=== PATIENT | female | born 1950 | race Two or more races ===

== ENCOUNTER 2024-01-29 04:11 | Inpatient (IN) | payer OTHER, MEDICARE, SELFPAY ==
[2024-01-29] VITALS (36 sets, daily range): BP systolic 125–221; BP diastolic 52–145; PULSE 75–110; RESP 16–95; TEMP 36.1–37.5; O2SAT 94–100; BMI 31.2; BMI 36.6
--- NOTE | 2024-01-29 04:26 | PD.EDRME ---
Rapid Medical Screening Exam [facility] Arrival date/time: 01/29/24 04:11 Chief Complaint: Shortness of Breath/Dyspnea Time Seen by Provider: 01/29/24 04:37 Vital signs: Vital Signs Pulse Rate 110 H 01/29/24 04:18 Respiratory Rate 35 H 01/29/24 04:18 RME Narrative: 73yo female NATAN presents to the ED for a chief complaint of shortness of breath. Unknown duration. Endorses associated nausea, headache, and shakiness. Patient is due for dialysis today at 0800, and was dialyzed on Sunday. She does not urinate.
--- NOTE | 2024-01-29 04:29 | XR_ITS ---
Examination: AP chest single view TECHNIQUE: AP portable upright chest single view Exam date and time: January 29, 2024 0441 hours Comparison January 05, 2023 INDICATIONS: Shortness of breath today. FINDINGS: Mild CHF Mild enlargement cardiac contour, prominent vascular congestion and perihilar basilar edema with smaller moderate bilateral pleural effusions IMPRESSION: Mild CHF
[2024-01-29] MEDS: METOPROLOL TARTRATE INJ 1 MG/ML AMP 5 ML 5 MG IVP (04:50)
[2024-01-29 05:17] LABS: Basophils # (Auto) 0.1 Thou/mm3 (0.0-0.2); Basophils % (Auto) 1 % (0-2.5); Eosinophils # (Auto) 0.3 Thou/mm3 (0.0-0.5); Eosinophils % (Auto) 2 % (0-10); Hematocrit 33.4 % (36.0-46.0); Hemoglobin 10.9 g/dL (12.0-16.0); Immature Granulocytes % (Auto) 1 % (0-0); Immature Granulocytes Auto 0.06 Thou/mm3 (0.00-0.00); Lymphocytes # (Auto) 1.9 Thou/mm3 (1.0-4.8); Lymphocytes % (Auto) 14 % (10-50); Mean Corpuscular HGB Conc 32.6 g/dl (31.0-37.0); Mean Corpuscular Hemoglobin 31.2 pg (25.0-35.0); Mean Corpuscular Volume 96 fL (80-100); Monocytes # (Auto) 0.7 Thou/mm3 (0.0-0.8); Monocytes % (Auto) 5 % (0-12); Neutrophils % (Auto) 78 % (37-80); Nucleated Red Blood Cell % 0 /100 WBC (0); Platelet Count 236 Thou/mm3 (140-440); RDW Standard Deviation 47.5 fL (36.4-46.3); Red Blood Count 3.49 Miln/mm3 (4.00-5.20); White Blood Count 12.9 Thou/mm3 (3.6-11.0)
[2024-01-29 05:55] LABS: Alanine Aminotransferase 32 U/L (10-49); Albumin, Serum 4.4 gm/dL (3.4-4.8); Albumin/Globulin Ratio 1.3 (1.2-2.2); Alkaline Phosphatase 253 U/L (46-116); Anion Gap 13 (7-16); Aspartate Amino Transferase 48 U/L (0-34); BUN/Creatinine Ratio 11 Ratio (12-20); Bilirubin,Total 0.2 mg/dL (0.3-1.2); Blood Urea Nitrogen 71 mg/dL (9-23); Calcium 9.1 mg/dL (8.3-10.6); Calcium (Corrected) 9.1 mg/dL (8.5-10.1); Carbon Dioxide 23.3 mMol/L (20.0-31.0); Chloride 98 mMol/L (98-107); Creatinine (Component) 6.7 mg/dL (0.6-1.3); Estimated Creatinine Clearance 6.6 mL/min (>60); Globulin 3.4 gm/dL (2.3-3.5); Glucose 282 mg/dL (74-106); Osmolality,Calculated 299 (275-295); Potassium 4.6 mMol/L (3.4-5.1); Sodium 134 mMol/L (136-145); Total Protein 7.8 gm/dL (5.7-8.2); Troponin I 0.037 ng/mL (0.0-0.045); eGFR 6 See Note
--- NOTE | 2024-01-29 06:52 | PC.NURSE ---
DR. BUENO MADE AWARE THAT THE PT BLOOD PRESSURE WENT BACK UP TO 210/92, AND REPORTED THAT HE WILL ASSESS PT FIRST.
--- NOTE | 2024-01-29 06:57 | PD.EDSOB ---
ED SOB =RME/HPI General Chief Complaint: Shortness of Breath/Dyspnea Stated Complaint: SOB Time Seen by Provider: 01/29/24 04:37 Arrival date/time: 01/29/24 04:11 RME / HPI RME / HPI Narrative: 73yo female NATAN presents to the ED for a chief complaint of shortness of breath. Unknown duration. Endorses associated nausea, headache, and shakiness. Patient is due for dialysis today at 0800, and was dialyzed on Sunday. She does not urinate. DR. BUENO MAIN ED EVALUATION 73 year old female with history of hypertension, diabetes, CKD, ESRD on HD T//Sun followed by Dr. Glez, hypothyroidism, and uses oxygen as needed presents to the ED BIBA from home for shortness of breath today. Daughter reports patient had complained of feeling unwell last night. At approximately 03:00 am the patient had lost consciousness and stopped breathing . State they performed CPR for approximately 15 seconds before the patient began moaning and responding. Daughter denies any recent fevers, falls, or trauma. Related Data Home Medications ?Medication ?Instructions ?Recorded ?Confirmed atorvastatin 40 mg tablet 20 mg PO QDAY 08/20/20 05/16/22 furosemide 20 mg tablet 20 mg PO BID 08/20/20 05/14/23 hydralazine 50 mg tablet 50 mg PO BID 08/20/20 05/14/23 insulin glargine 100 unit/mL 10 unit subcut BID 08/20/20 05/14/23 subcutaneous solution (Lantus U-100 Insulin) metoprolol tartrate 50 mg tablet 50 mg PO BID 08/20/20 05/14/23 semaglutide 1 mg/dose (2 mg/1.5 0.5 mg subcut QWEEK 08/20/20 05/14/23 mL) subcutaneous pen injector (Ozempic) vitamin B complex-vitamin C-folic 1 tab PO QDAY 08/20/20 05/14/23 acid 800 mcg chewable tablet (Dialyvite 800) apixaban 5 mg tablet (Eliquis) 5 mg PO BID 05/16/22 05/16/22 clonidine HCl 0.2 mg tablet 0.2 mg PO TID 05/16/22 05/14/23 escitalopram oxalate 20 mg tablet 20 mg PO QDAY 05/16/22 05/14/23 glimepiride 2 mg tablet 2 mg PO BID 05/16/22 05/14/23 levothyroxine 100 mcg tablet 100 mcg PO DAILY 05/16/22 05/14/23 lidocaine 4 % topical cream 1 applic topical BID 05/16/22 05/16/22 valsartan 320 1 tab PO QDAY 05/16/22 05/16/22 mg-hydrochlorothiazide 25 mg tablet loperamide 2 mg capsule (Imodium 2 mg PO Q6H PRN 05/14/23 05/14/23 A-D) phenazopyridine 100 mg tablet 100 mg PO TID 05/14/23 05/14/23 (Pyridium) Allergies Allergy/AdvReac Type Severity Reaction Status Date / Time No Known Allergies Allergy Verified 05/14/23 10:14 Review of Systems Review of Systems Narrative Review of Systems: GEN: No fever, no chills, no weight loss EYES: No discharge, no visual changes, no pain HEENT: No ear pain, no congestion, no sore throat PULM: +shortness of breath, no cough, no congestion CV: +LOC per family with CPR performed for 15 seconds. No chest pain, no palpitations GI: No nausea, no vomiting, no diarrhea, no pain, no constipation : No frequency, no urgency and no dysuria MUSC/SKEL No joint pain, no back pain SKIN: No rash NEURO: No weakness, no headache Past Medical History Past Medical History NEUROLOGIC: Positive Peripheral Neuropathy CARDIAC: Positive Cardiac Disorders, Cardiac Arrhythmia, Heart Murmur, Atherosclerotic Heart Disease, Hypercholesterolemia, Edema, Deep Vein Thrombosis and Hypertension RESPIRATORY: Positive Bronchitis GASTROINTESTINAL: Positive Gastrointestinal Disorders, Gastroesophageal Reflux Disease and Obesity GENITOURINARY: Positive Genitourinary Disorders, Renal Disease and Dialysis (Tues, Thurs, Sat) REPRODUCTIVE: Positive Breast Cancer and Previous Pregnancies MUSCULOSKELETAL: Positive Musculoskeletal Disorders, Arthritis, Osteoporosis and Fractures ENDOCRINE: Positive Endocrine Disorders, Diabetes Mellitus Type 2, Hyperthyroidism and Hypothyroidism HEMATOLOGIC: Positive Anemia PSYCHO/SOCIAL: Positive Depression and Anxiety OTHER HISTORY: Positive Blood Transfusions, Cancer and Breast Cancer Family History FAMILY HISTORY: Negative Family Cardiac Disorders Surgical History SURGICAL: Positive Abdominal Surgery, Lumpectomy and Section Social History SMOKING STATUS: Never smoker SUBSTANCE USE: does not use ED Exam Narrative Physical exam: GENERAL APPEARANCE: Well hydrated, well nourished, in no acute distress. VITALS: All vitals were reviewed and the pulse ox is 94% on room air which is normal according to my interpretation. HEENT: Normocephalic, atramatic, EOMI, EACs are patent. There is no bulge or retraction. Throat without erythema or exudate. Moist oromucosa. No jaundice NECK: Supple, no JVD or bruits. CARDIOVASCULAR: Heart regular without S3-S4 or murmur. No rubs or gallops. LUNGS/CHEST: Rhonchi at the bases. No rales or wheezing. ABDOMEN: Soft, nontender, with normal bowel sounds. No pulsatile masses. No rebound, rigidity, or guarding. No incarcerated hernia. Normal inspection and palpation. EXTREMITIES: Normal inspection and palpation. No edema, clubbing, or cyanosis. Intact CSM SKIN: Warm and dry without rashes. Normal inspection. MUSCULOSKELETAL: Normal inspection. No gross deformity, full ROM all extremities NEURO: Alert and oriented x3. Cranial nerves II through XII grossly intact. There are no other motor or sensory deficits noted. PSYCHIATRIC: Normal mood and affect. No psychosis. Course Course Course Narrative: chest xray ordered to help determine etiology of shortness of breath. Quality Measures none Orders Category Date Time Status EKG (ED ONLY) *Do not use* NOW Care 01/29/24 04:27 Completed Hemodialysis Urgent Care 01/29/24 07:29 Active Insert IV NOW Care 01/29/24 04:28 Active Consult to Nephrology Stat Cons 01/29/24 07:28 Ordered EKG (ED Only) Stat Exams 01/29/24 04:27 Ordered XR chest 1V portable Stat Exams 01/29/24 04:29 Completed BNP [B-Type Natriuretic Peptide] Stat Lab 01/29/24 04:36 Completed CBC Stat Lab 01/29/24 04:36 Completed Comprehensive Metabolic Panel Stat Lab 01/29/24 04:36 Completed Troponin I Stat Lab 01/29/24 04:36 Completed Acetaminophen Tab [Tylenol Tab] Med 01/29/24 09:28 Discontinued 650 mg PO X1 ONE Epoetin Manuel-Epbx Inj [Retacrit Inj] Med 01/29/24 07:29 Discontinued 10,000 unit SC X1 ONE Metoprolol Tartrate Inj [Lopressor Inj] Med 01/29/24 04:37 Discontinued 5 mg IVP X1 ONE hydrALAZINE INJ [Apresoline Inj] Med 01/29/24 07:07 Discontinued 10 mg IV X1 ONE Vital Signs Vital signs: Vital Signs Pulse Rate 110 H 01/29/24 04:18 Respiratory Rate 35 H 01/29/24 04:18 Shortness of Breath / Dyspnea MDM Narrative MDM Narrative:: I, Priscilla Sly, am scribing for and in the presence of Dr. Bueno. WBC count is 13,000. BUN 71 creatinine is 6.7 which is consistent with end-stage renal disease. Blood sugar is 282. She is diabetic. Troponin is negative. BNP is elevated. Chest x-ray reviewed by and interpreted by me as follow: Mild congestive heart failure and pulmonary edema. Blunting right costophrenic angle may be consistent with mild pleural effusion. Heart is normal. Mediastinum is normal. Normal bones. Twelve-lead EKG at 4:38 AM and interpreted by me: Sinus rhythm. Heart rate 84. Normal axis. Right bundle branch block. No ST elevation or depression. No PVC. No STEMI. The patient is stable on oxygen. 10 AM I spoke to and discussed with Dr. Montoya, primary doctor as well as inside solar sales consultant. She agreed to admit the patient for further evaluation and treatment and dialysis Critical care time is approximately 35 minutes excluding any procedure. The high probability of sudden, clinically significant deterioration in the patient?s condition required the highest level of my preparedness to intervene urgently. The services I provided to this patient were to treat and/or prevent clinically significant deterioration. Services included the following: chart data review, reviewing nursing notes and/or old charts, documentation time, art sales consultant collaboration regarding findings and treatment options, medication orders and management, direct patient care, vital sign assessments and ordering, interpreting and reviewing diagnostic studies and lab tests. Aggregate critical care time includes only time during which I was engaged in work directly related to the patient?s care, as described above, whether at bedside or elsewhere in the Emergency Department. It did not include time spent performing other reported procedures or the services of residents, students, nurses or physician assistants. Patient data External records reviewed:: [facility] previous records (I reviewed ED visit on 01/05/2023) and EMS form Clinical information provided by:: patient and family (Daughter- provides history ) Social determinants that could affect healthcare access:: none Patient has the following chronic illnesses:: hypertension, diabetes, CKD, ESRD on HD T//Sun followed by Dr. Glez, hypothyroidism, and uses oxygen as needed How is presenting disease/condition affected by chronic disease/condition?: exacerbated by Evaluation data The following diagnostics were reviewed and interpreted by me:: lab results, radiology exam(s) and EKG tracing(s) Lab and/or radiology exams considered but not ordered:: None Interpretation Summary: Ordering Physician: Mariza Valerio MD Date of Service: 01/29/24 Procedure(s): XR chest 1V portable Accession Number(s): [id number] cc: Jed Multani MD; Mariza Valerio MD; Roderick Glez MD~ Examination: AP chest single view TECHNIQUE: AP portable upright chest single view Exam date and time: January 29, 2024 0441 hours Comparison January 05, 2023 INDICATIONS: Shortness of breath today. FINDINGS: Mild CHF Mild enlargement cardiac contour, prominent vascular congestion and perihilar basilar edema with smaller moderate bilateral pleural effusions IMPRESSION: Mild CHF Dictated By: Jed Multani MD Signed By: <Electronically signed by Jed Multani MD in OV> 01/29/24 0940 Medications / Prescriptions Medications or Prescriptions considered but not ordered:: None Medication administrations:: Medication Administration History Acetaminophen (Acetaminophen 325 Mg Tablet) 650 mg PO Q6H PRN PRN Reason: PAIN SCALE 1-3 (mild Stop: 02/28/24 09:56 Bisacodyl (Bisacodyl 5 Mg Tabec) 10 mg PO QDAY PRN; Protocol PRN Reason: CONSTIPATION Stop: 02/28/24 09:56 Dextrose (Dextrose 50%-Water Inj 50 Ml Syringe) 25 ml IV Q15MIN PRN PRN Reason: BG 50-70 responsive npo pt Stop: 02/28/24 10:01 Dextrose (Dextrose 50%-Water Inj 50 Ml Syringe) 50 ml IV Q15MIN PRN PRN Reason: BG <50 OR BG <70 & pt unresponsive Stop: 02/28/24 10:01 Glucagon (Glucagon Inj 1 Mg Vial) 1 mg IM Q15MIN PRN PRN Reason: BG <70, and no IV access Heparin Sodium (Porcine) (Heparin Sod Inj 5000 Unit/Ml Vial) 5,000 unit SC Q8HR ELÍAS Stop: 02/12/24 13:59 Insulin Human Lispro (Insulin Lispro (Admelog) 1 Unit/0.01 Ml Unit) 0 unit SC ACHS [facility]; Protocol Stop: 02/28/24 11:29 Ondansetron HCl (Ondansetron Inj 2 Mg/Ml Inj 2 Ml) 4 mg IV Q6H PRN; Protocol PRN Reason: NAUSEA OR VOMITING Stop: 02/28/24 09:56 Oxycodone/Acetaminophen (Oxycodone/Apap 5/325 Tablet) 1 tab PO Q6H PRN PRN Reason: PAIN SCALE 4-6 (Moderate Stop: 02/03/24 09:56 Sennosides (Senna Tablet) 1 tab PO QDAY PRN; Protocol PRN Reason: constipation Stop: 02/28/24 09:56 Discontinued Medications Acetaminophen (Acetaminophen 325 Mg Tablet) 650 mg PO X1 ONE Stop: 01/29/24 09:29 Last Admin: 01/29/24 09:59 Dose: 650 mg Documented By: GM Epoetin Manuel (Epoetin Manuel-Epbx Inj 10,000 Unit/Ml Vial (Esrd)) 10,000 unit SC X1 ONE Stop: 01/29/24 07:30 Last Admin: 01/29/24 10:13 Dose: 10,000 unit Documented By: GM Hydralazine HCl (Hydralazine Inj 20 Mg/Ml Vial) 10 mg IV X1 ONE Stop: 01/29/24 07:08 Last Admin: 01/29/24 07:15 Dose: 10 mg Documented By: GM Metoprolol Tartrate (Metoprolol Tartrate Inj 1 Mg/Ml Amp 5 Ml) 5 mg IVP X1 ONE Stop: 01/29/24 04:38 Last Admin: 01/29/24 04:50 Dose: 5 mg Documented By: DB See above Consultations Consultation(s) initiated? (list below): Yes Consultation #1 (Physician, Specialty, Details): I spoke with patients PCP/inside solar sales consultant Dr. Glez. Discussed patients PMHx, HPI, ED course, exam findings, labs, and radiology results. She accepts the patient for admission. Time: 09:55 Diagnosis Shortness of Breath Differential Diagnosis: acute exacerbation of chronic obstructive airways disease, congestive heart failure and community acquired pneumonia Most likely diagnosis given after review of the tests above:: Diabetes with ESRD Fluid overload Admission Indicated Admission indicated?: indicated Admission Request Was there a request for admission?: Yes Admission Attestation Admission request attestation: Discussed case with [] from Hospitalist service regarding admission. Discussed patients ED course, exam findings, labs, and radiology results. The Hospitalist [agrees,declines] to accept the patient for admission. Disposition Plan Disposition Plan: Admit Critical Care Time Critical Care Time Critical Care Time: Yes Total Critical Care Time (min.): 35 Attestation: The high probability of sudden, clinically significant deterioration in the patient's condition required the highest level of my preparedness to intervene urgently. The services I provided to this patient were to treat and/or prevent clinically significant deterioration. Services included the following: chart data review, reviewing nursing notes and/or old charts, documentation time, art sales consultant collaboration regarding findings and treatment options, medication orders and management, direct patient care, vital sign assessments and ordering, interpreting and reviewing diagnostic studies and lab tests. Aggregate critical care time includes only time during which I was engaged in work directly related to the patient's care, as described above, whether at bedside or elsewhere in the Emergency Department. It did not include time spent performing other reported procedures or the services of residents, students, nurses or physician assistants. Discharge Plan Plan Patient Disposition: Admit Acute Care w/in Hospital Disposition Comment: Stable for admit Problem List Clinical Impression: Diabetes mellitus with ESRD (end-stage renal disease), Fluid overload
[2024-01-29] MEDS: hydrALAZINE INJ 20 MG/ML VIAL 10 MG IV (07:15)
[2024-01-29 07:29] LABS: B-Type Natriuretic Peptide 1144 pg/mL (0-100)
[2024-01-29] MEDS: ACETAMINOPHEN 325 MG TABLET 650 MG PO ×2 (09:59→22:09)
--- NOTE | 2024-01-29 10:01 | ECHO_ITS ---
Transthoracic Echo Report Ht (in): 60 Wt (lb): 160 Exam Location: Portable Status: Emergency Philosophy Instructor: Daksha Roberts Indications: Procedure Performed: BP: 182 / 78 HR: 92 Rhythm: Sinus Technical Quality: Fair MEASUREMENTS (Male / Female) Normal Values 2D ECHO LV Diastolic Diameter PLAX 4.9 cm 4.2 - 5.9 / 3.9 - 5.3 cm LV Systolic Diameter PLAX 3.0 cm IVS Diastolic Thickness 1.3 cm 0.6 - 1.0 / 0.6 - 0.9 cm LVPW Diastolic Thickness 1.4 cm 0.6 - 1.0 / 0.6 - 0.9 cm LV Relative Wall Thickness 0.5 LVOT Diameter 1.7 cm LA Volume Index 38.0 cm?/m? 16 - 28 cm?/m? Ascending Aorta Diameter 3.1 cm M-MODE Aortic Root Diameter MM 3.1 cm LA Systolic Diameter MM 4.3 cm LA Ao Ratio MM 1.4 AV Cusp Separation MM 2.3 cm DOPPLER AV Peak Velocity 195.0 cm/s AV Peak Gradient 15.2 mmHg AV Mean Gradient 8.5 mmHg AV Velocity Time Integral 38.2 cm AI Peak Velocity 354.0 cm/s AI Peak Gradient 50.1 mmHg AI Pressure Half Time 366.0 ms LVOT Peak Velocity 120.0 cm/s LVOT Peak Gradient 5.8 mmHg LVOT Velocity Time Integral 25.8 cm LVOT Cardiac Index 3022.4 cm?/min?m? AV Area Cont Eq vti 1.5 cm? AV Area Cont Eq pk 1.4 cm? MV Peak Velocity 151.0 cm/s MV Peak Gradient 9.1 mmHg MV Mean Velocity 86.8 cm/s MV Mean Gradient 4.0 mmHg MV Area PHT 4.8 cm? MR Peak Velocity 330.5 cm/s MR Peak Gradient 43.7 mmHg Mitral E Point Velocity 133.0 cm/s Mitral A Point Velocity 103.0 cm/s Mitral E to A Ratio 1.3 LV E' Lateral Velocity 5.9 cm/s Mitral E to LV E' Lateral Ratio 22.7 LV E' Septal Velocity 6.5 cm/s Mitral E to LV E' Septal Ratio 20.4 TR Peak Velocity 246.5 cm/s TR Peak Gradient 24.3 mmHg FINDINGS Left Ventricle Normal left ventricular size, systolic function with no obvious regional wall motion abnormalities. Mild to moderate LVH. The ejection fraction is visually estimated at 65-70%. Right Ventricle The right ventricle is normal in size and systolic function. The estimated right ventricular systoli c pressure, 25mmHg. RAP 5. Left Atrium The left atrium is normal by two-dimensional, color flow and Doppler imaging with no structural abnormalities, no thrombus formation present. Right Atrium The right atrium is normal by two-dimensional imaging, color flow and Doppler imaging with no struct ural abnormalities, no thrombus formation present. Atrial Septum The interatrial septum appears normal with no evidence of a shunt. Aorta The aorta is normal by two-dimensional, color flow and Doppler interrogation. Mitral Valve The mitral valve is mildly MAC. There is mild mitral valve regurgitation. Aortic Valve The aortic valve is trileaflet. Mild sclerosis without stenosis. There is mild aortic valve regurgi tation. Tricuspid Valve The tricuspid valve is normal by two-dimensional, color flow and Doppler interrogation. There is tra ce tricuspid valve regurgitation. Pulmonic Valve There is mild pulmonic valve regurgitation. Vessels The pulmonary artery appears normal. The inferior vena cava pulmonary and hepatic veins appear esteban l. Pericardium The pericardium is normal by two-dimensional imaging. There is trival posterior pericardial effusi on. No evidence of cardiac tamponade. CONCLUSIONS Normal LV size and function. Mild to moderate LVH. Estimated EF 65-70% Normal RV size and function. Mild MAC. Mild MR, AI, PI. Trace TR. Mild AV sclerosis without stenosis. There is trival posterior pericardial effusion. No evidence of cardiac tamponade. Bucky Patel (Electronically Signed) Final Date: 30 January 2024 16:29
[2024-01-29] MEDS: EPOETIN ALFA-EPBX INJ 10,000 UNIT/ML VIAL (ESRD) 10000 UNIT SC (10:13)
[2024-01-29 10:40] LABS: Magnesium 2.5 mg/dL (1.6-2.6)
[2024-01-29] MEDS: INSULIN LISPRO (AdmeLOG) 1 UNIT/0.01 ML UNIT SC ×3 (11:26→20:24)
--- NOTE | 2024-01-29 11:52 | PC.NURSE ---
Selwyn, dialysis nurse her to take patient to dialysis.
--- NOTE | 2024-01-29 13:02 | PD.RESCONSUL ---
HPI Data of Consult Requesting Physician: Roderick Glez MD Admitting Provider: Roderick Glez MD Attending Provider: Roderick Glez MD Primary Care Provider: Roderick Glez MD Consult Narrative Reason for consult: shortness of breath, loss of consciousness History of present illness: The patient is a 73-year-old female with a previous medical history of end-stage renal disease on hemodialysis (), last dialysis session on sunday, hypothyroidism, hypertension, diabetes who came to the ED with shortness of breath and episode of loss of consciousness. Her daughter is at the bedside, reports that she started feeling unwell the day before with shortness of breath and cough, feeling of pressure in her chest. 01/29/2024 at approximately 3 AM she reported that she felt severely short of breath and briefly lost consciousness and stopped breathing. Daughter denies any trauma, patient was sitting on the sofa when lost conscioussness. ED course: In the ED patient was hypertensive 207/145, tachycardic 110, tachypneic and was saturating well on 2 L oxygen. Labs showed leukocytosis 12.9, hemoglobin 10.9, sodium 134, potassium 4.6, BUN 71, creatinine 6.7, EGFR 6, glucose 282, alkaline phosphatase 253, BNP 1144. Chest x-ray showed mild CHF. EKG showed sinus rhythm. During the examination patient was tachycardic and rhythm was irregular. Patient has received hydralazine 10 mg IV, metoprolol tartrate 5 mg IV. Patient was admitted due to hypertensive emergency due to fluid overload. She is set to receive her dialysis on schedule today. cc:: cc: Roderick Glez MD Review of Systems Review of Systems Narrative Review of Systems: General: Denies weight loss, fever and chills. HEENT: Denies changes in vision and hearing. Resp: Reports SOB, cough, no wheezing. CVS: Denies palpitations and CP. Reports feeling of pressure in the chest. GI: Denies nausea, vomiting and diarrhea. Reports mild abdominal pain. : Denies dysuria and urinary frequency. MSK: Denies myalgia and joint pain. Denies rash and pruritus. Neuro: Denies headache. Reports episode of loss of consciousness. Psych: Denies recent changes in mood. Denies anxiety and depression. Exam Vital Signs Temp Pulse Resp BP Pulse Ox O2 Del Method O2 Flow Rate 97.8 F 79 20 168/77 H 94 L Room Air 2 01/29/24 11:59 01/29/24 13:00 01/29/24 11:59 01/29/24 13:00 01/29/24 11:59 01/29/24 10:03 01/29/24 10:06 Narrative Exam Physical Exam General: Awake and in no acute distress. Conversational and non-toxic appearing. HEENT: Normocephalic, atraumatic, mucous membranes moist. Heart: Irregular rate, no murmurs. Lungs: Duffuse rhinchi and crackles. Abdomen: Soft, nondistended, diffusely mildly tender, positive bowel sounds. ?No guarding or rebound tenderness. Neurologic: Alert and oriented x3, no gross neurological deficit, and patient able to move all 4 extremities. Extremities: No edema. Skin: No rash or ecchymoses. Results Labs 01/29/24 04:36 01/29/24 04:36 Labs: Short CBC 01/29/24 Range/Units 04:36 WBC 12.9 H (3.6-11.0) Thou/mm3 Hgb 10.9 L (12.0-16.0) g/dL Hct 33.4 L (36.0-46.0) % Plt Count 236 (140-440) Thou/mm3 BMP 01/29/24 04:36 Sodium 134 L Potassium 4.6 Chloride 98 Carbon Dioxide 23.3 BUN 71 H Creatinine 6.7 H* Glucose 282 H Calcium 9.1 Cardiac Enzymes 01/29/24 Range/Units 04:36 Troponin I 0.037 (0.0-0.045) ng/mL Liver Function 01/29/24 Range/Units 04:36 Total Bilirubin 0.2 L (0.3-1.2) mg/dL AST 48 H (0-34) U/L ALT 32 (10-49) U/L Alkaline Phosphatase 253 H (46-116) U/L Albumin 4.4 (3.4-4.8) gm/dL Quality Measures Quality Measures none Advance care planning discussed with:: patient and child Medications Home Medications and Allergies Home Medications ?Medication ?Instructions ?Recorded ?Confirmed ?Type atorvastatin 40 mg tablet 20 mg PO QDAY 08/20/20 05/16/22 History furosemide 20 mg tablet 20 mg PO BID 08/20/20 05/14/23 History hydralazine 50 mg tablet 50 mg PO BID 08/20/20 05/14/23 History insulin glargine 100 unit/mL 10 unit subcut BID 08/20/20 05/14/23 History subcutaneous solution (Lantus U-100 Insulin) metoprolol tartrate 50 mg tablet 50 mg PO BID 08/20/20 05/14/23 History semaglutide 1 mg/dose (2 mg/1.5 0.5 mg subcut QWEEK 08/20/20 05/14/23 History mL) subcutaneous pen injector (Ozempic) vitamin B complex-vitamin C-folic 1 tab PO QDAY 08/20/20 05/14/23 History acid 800 mcg chewable tablet (Dialyvite 800) apixaban 5 mg tablet (Eliquis) 5 mg PO BID 05/16/22 05/16/22 History clonidine HCl 0.2 mg tablet 0.2 mg PO TID 05/16/22 05/14/23 History escitalopram oxalate 20 mg tablet 20 mg PO QDAY 05/16/22 05/14/23 History glimepiride 2 mg tablet 2 mg PO BID 05/16/22 05/14/23 History levothyroxine 100 mcg tablet 100 mcg PO DAILY 05/16/22 05/14/23 History lidocaine 4 % topical cream 1 applic topical BID 05/16/22 05/16/22 History valsartan 320 1 tab PO QDAY 05/16/22 05/16/22 History mg-hydrochlorothiazide 25 mg tablet loperamide 2 mg capsule (Imodium 2 mg PO Q6H PRN 05/14/23 05/14/23 History A-D) phenazopyridine 100 mg tablet 100 mg PO TID 05/14/23 05/14/23 History (Pyridium) Allergies Allergy/AdvReac Type Severity Reaction Status Date / Time No Known Allergies Allergy Verified 05/14/23 10:14 Visit Medications Acetaminophen (Acetaminophen 325 Mg Tablet) 650 mg PO Q6H PRN PRN Reason: PAIN SCALE 1-3 (mild Stop: 02/28/24 09:56 Bisacodyl (Bisacodyl 5 Mg Tabec) 10 mg PO QDAY PRN; Protocol PRN Reason: CONSTIPATION Stop: 02/28/24 09:56 Dextrose (Dextrose 50%-Water Inj 50 Ml Syringe) 25 ml IV Q15MIN PRN PRN Reason: BG 50-70 responsive npo pt Stop: 02/28/24 10:01 Dextrose (Dextrose 50%-Water Inj 50 Ml Syringe) 50 ml IV Q15MIN PRN PRN Reason: BG <50 OR BG <70 & pt unresponsive Stop: 02/28/24 10:01 Glucagon (Glucagon Inj 1 Mg Vial) 1 mg IM Q15MIN PRN PRN Reason: BG <70, and no IV access Heparin Sodium (Porcine) (Heparin Sod Inj 5000 Unit/Ml Vial) 5,000 unit SC Q8HR [facility] Stop: 02/12/24 13:59 Hydralazine HCl (Hydralazine Inj 20 Mg/Ml Vial) 10 mg IV Q6HR PRN PRN Reason: Hypertension Stop: 02/28/24 12:57 Insulin Human Lispro (Insulin Lispro (Admelog) 1 Unit/0.01 Ml Unit) 0 unit SC ACHS [facility]; Protocol Stop: 02/28/24 11:29 Last Admin: 01/29/24 11:26 Dose: 3 unit Metoprolol Succinate (Metoprolol Succinate Xl 25 Mg Tabcr) 50 mg PO QDAY [facility] Stop: 02/29/24 08:59 Ondansetron HCl (Ondansetron Inj 2 Mg/Ml Inj 2 Ml) 4 mg IV Q6H PRN; Protocol PRN Reason: NAUSEA OR VOMITING Stop: 02/28/24 09:56 Oxycodone/Acetaminophen (Oxycodone/Apap 5/325 Tablet) 1 tab PO Q6H PRN PRN Reason: PAIN SCALE 4-6 (Moderate Stop: 02/03/24 09:56 Sennosides (Senna Tablet) 1 tab PO QDAY PRN; Protocol PRN Reason: constipation Stop: 02/28/24 09:56 Valsartan (Valsartan 80 Mg Tablet) 160 mg PO BID [facility] Stop: 02/28/24 20:59 Discontinued Medications Acetaminophen (Acetaminophen 325 Mg Tablet) 650 mg PO X1 ONE Stop: 01/29/24 09:29 Last Admin: 01/29/24 09:59 Dose: 650 mg Epoetin Manuel (Epoetin Manuel-Epbx Inj 10,000 Unit/Ml Vial (Esrd)) 10,000 unit SC X1 ONE Stop: 01/29/24 07:30 Last Admin: 01/29/24 10:13 Dose: 10,000 unit Hydralazine HCl (Hydralazine Inj 20 Mg/Ml Vial) 10 mg IV X1 ONE Stop: 01/29/24 07:08 Last Admin: 01/29/24 07:15 Dose: 10 mg Hydralazine HCl (Hydralazine Hcl 25 Mg Tablet) 50 mg PO BID [facility] Stop: 02/28/24 20:59 Hydralazine HCl (Hydralazine Inj 20 Mg/Ml Vial) 10 mg IV PRN PRN PRN Reason: Hypertension Stop: 02/28/24 12:57 Metoprolol Tartrate (Metoprolol Tartrate Inj 1 Mg/Ml Amp 5 Ml) 5 mg IVP X1 ONE Stop: 01/29/24 04:38 Last Admin: 01/29/24 04:50 Dose: 5 mg Assessment & Plan Plan The patient is a 73-year-old female with a previous medical history of end-stage renal disease on hemodialysis (), last dialysis session on sunday, hypothyroidism, hypertension, diabetes who came to the ED with shortness of breath and episode of loss of consciousness. #Hypertensive emergency #Acute hypoxic respiratory failure, resolved #Syncopal episode Most likely due to fluid overload. Patient had a BP >200/100 at the admission. Chest Xray showed mild CHF. Plan: - Valsartan 180 mg BID - Metoprolol succinate 50 mg daily - Hydralazine 10 mg IV PRN if BP >180/100 - Hemodialysis with goal to remove 3L of fluid - Strict I's and O's - Obtain daily weight #Possible paroxysmal A-fib In the ED monitoring showed irregular heart rate. HR 78. Plan: - continue monitoring - repeat EKG #ESRD on HD () 01/29/24: Patient will have dialysis today, plan to remove 3 L of fluid. Plan: - continue with dialysis as scheduled #Hypothyroidism Plan: - Resumed home levothyroxin #Type 2 diabetes mellitus Plan: - sensitive ISS with Accu-checks Health maintenance: FEN: Renal diet carbohydrate consistent DVT prophylaxis: heparin sc GI prophylaxis: none Dispo: tele bed CODE STATUS: Full code Plan of care discussed with attending Dr. Glez. Fawn Herrera MD, PGY 1.
--- NOTE | 2024-01-29 15:27 | PC.NURSE ---
Dialysis completed for 3 hrs, tolerated well. Able to removed 3L of fluid net. Post tx VS stable. BP 183/85, HR 84, Temp 97.8. Respiration even and unlabored. Sating at 97% RA. Pressure dressing on left upper av fistula clean/dry/intact. Pressure dressing needs to be remove around 1830.
--- NOTE | 2024-01-29 15:37 | PC.CC ---
Pt Mariza Callahan is a 73 yr old female admitted to hospitalist services for AHRF acute fluid overload. [employer] [facility] met with pt and her daughter Elizabeth Kebede [phone] at bedside to complete initial assessment. Pt is alert and oriented to person, place and situation, but hx provided by pts daughter. Pt and daughter expressed understanding admission order. Pt daughter able to confirm demographic information. Pt is from home [address] [place]. Pt lives in the home with her . Pt identifies her daughter Elizabeth as surrogate DM. At baseline pt is ambulatory with cane. Pt requires assist with her ADLs. Per pts daughter pt is pending [facility] evaluation for services. Pt is diabetic on insulin for management. Pt is on dialysis at [facility]. Pts chair time is at 1000 T, Th and Sat. Pt requires PRN supplemental O2 at home, daughter unable to provide flow rate or vendor name. In the ED pt is on 2L NC. Pt is followed by Dr. Glez for primary care. At time of D/c pt will return home. Per daughter pt has been in a SNF and pt did not progress as expected. Family will provide transport for pt home at time of D/c.
--- NOTE | 2024-01-29 15:40 | PC.NURSE ---
PATIENT RETURNED FROM DIALYSIS. PATIENT DENIES COMPLAINT OF PAIN AT THIS TIME.
[2024-01-29] MEDS: METOPROLOL SUCCINATE XL 25 MG TABCR 50 MG PO (15:52)
[2024-01-29] MEDS: HEPARIN SOD INJ 5000 UNIT/ML VIAL SC ×2 (15:54→22:14)
--- NOTE | 2024-01-29 16:37 | ESHP_ITS ---
Documentation for date of: 01/29/24 [facility] History of Present Illness Chief complaint: shortness of breath, episode of syncope History of present illness: The patient is a 73-year-old female with a previous medical history of end-stage renal disease on hemodialysis (), last dialysis session on sunday, hypothyroidism, hypertension, diabetes who came to the ED with shortness of breath and episode of loss of consciousness. Her daughter is at the bedside, reports that she started feeling unwell the day before with shortness of breath and cough, feeling of pressure in her chest. 01/29/2024 at approximately 3 AM she reported that she felt severely short of breath and briefly lost consciousness and stopped breathing. Daughter denies any trauma, patient was sitting on the sofa when lost conscioussness. ED course: In the ED patient was hypertensive 207/145, tachycardic 110, tachypneic and was saturating well on 2 L oxygen. Labs showed leukocytosis 12.9, hemoglobin 10.9, sodium 134, potassium 4.6, BUN 71, creatinine 6.7, EGFR 6, glucose 282, alkaline phosphatase 253, BNP 1144. Chest x-ray showed mild CHF. EKG showed sinus rhythm. During the examination patient was tachycardic and rhythm was irregular. Patient has received hydralazine 10 mg IV, metoprolol tartrate 5 mg IV. Patient was admitted due to hypertensive emergency due to fluid overload. She is set to receive her dialysis on schedule today. Review of Systems Review of Systems Narrative Review of Systems: General: Denies weight loss, fever and chills. HEENT: Denies changes in vision and hearing. Resp: Reports SOB, cough, no wheezing. CVS: Denies palpitations and CP. Reports feeling of pressure in the chest. GI: Denies nausea, vomiting and diarrhea. Reports mild abdominal pain. : Denies dysuria and urinary frequency. MSK: Denies myalgia and joint pain. Denies rash and pruritus. Neuro: Denies headache. Reports episode of loss of consciousness. Psych: Denies recent changes in mood. Denies anxiety and depression. Past Medical History Past Medical History NEUROLOGIC: Positive Peripheral Neuropathy; Negative Neurological Disorders CARDIAC: Positive Cardiac Disorders, Cardiac Arrhythmia, Heart Murmur, Atherosclerotic Heart Disease, Hypercholesterolemia, Edema, Deep Vein Thrombosis and Hypertension; Negative Congestive Heart Failure RESPIRATORY: Positive Bronchitis; Negative Chronic Obstructive Pulmonary Disease (COPD) GASTROINTESTINAL: Positive Gastrointestinal Disorders, Gastroesophageal Reflux Disease and Obesity GENITOURINARY: Positive Genitourinary Disorders, Renal Disease and Dialysis (Tues, Thyamel, Sat) REPRODUCTIVE: Positive Breast Cancer and Previous Pregnancies MUSCULOSKELETAL: Positive Musculoskeletal Disorders, Arthritis, Osteoporosis and Fractures ENDOCRINE: Positive Endocrine Disorders, Diabetes Mellitus Type 2, Hyperthyroidism and Hypothyroidism; Negative Diabetes Mellitus Type 1 HEMATOLOGIC: Positive Anemia; Negative Blood Disorders PSYCHO/SOCIAL: Positive Depression and Anxiety OTHER HISTORY: Positive Blood Transfusions, Cancer and Breast Cancer; Negative Hospitalization, Blood Transfusion Reaction, Anesthesia Reactions, Chemotherapy or Radiation Therapy Family History FAMILY HISTORY: Negative Family Cardiac Disorders Surgical History SURGICAL: Positive Abdominal Surgery, Lumpectomy and Section; Negative Joint Replacement Social History SMOKING STATUS: Never smoker SUBSTANCE USE: does not use Exam Vital Signs Temp Pulse Resp BP Pulse Ox O2 Del Method O2 Flow Rate 97.8 F 85 16 137/88 H 98 Room Air 2 01/29/24 15:13 01/29/24 15:52 01/29/24 15:39 01/29/24 15:52 01/29/24 15:39 01/29/24 15:39 01/29/24 10:06 Narrative Exam Physical Exam General: Awake and in no acute distress. Conversational and non-toxic appearing. HEENT: Normocephalic, atraumatic, mucous membranes moist. Heart: Irregular rate, no murmurs. Lungs: Duffuse rhinchi and crackles. Abdomen: Soft, nondistended, diffusely mildly tender, positive bowel sounds. ?No guarding or rebound tenderness. Neurologic: Alert and oriented x3, no gross neurological deficit, and patient able to move all 4 extremities. Extremities: No edema. Skin: No rash or ecchymoses. Results: Labs 01/29/24 04:36 01/29/24 04:36 Labs: Short CBC 01/29/24 Range/Units 04:36 WBC 12.9 H (3.6-11.0) Thou/mm3 Hgb 10.9 L (12.0-16.0) g/dL Hct 33.4 L (36.0-46.0) % Plt Count 236 (140-440) Thou/mm3 BMP 01/29/24 04:36 Sodium 134 L Potassium 4.6 Chloride 98 Carbon Dioxide 23.3 BUN 71 H Creatinine 6.7 H* Glucose 282 H Calcium 9.1 Cardiac Enzymes 01/29/24 Range/Units 04:36 Troponin I 0.037 (0.0-0.045) ng/mL Liver Function 01/29/24 Range/Units 04:36 Total Bilirubin 0.2 L (0.3-1.2) mg/dL AST 48 H (0-34) U/L ALT 32 (10-49) U/L Alkaline Phosphatase 253 H (46-116) U/L Albumin 4.4 (3.4-4.8) gm/dL Quality Measures Quality Measures VTE prophylaxis Advance care planning discussed with:: patient and child Medications Home Medications and Allergies Home Medications ?Medication ?Instructions ?Recorded ?Confirmed ?Type atorvastatin 40 mg tablet 20 mg PO HS 08/20/20 01/29/24 History furosemide 20 mg tablet 20 mg PO BID 08/20/20 01/29/24 History hydralazine 50 mg tablet 50 mg PO TID 08/20/20 01/29/24 History insulin glargine 100 unit/mL 20 unit subcut BID 08/20/20 01/29/24 History subcutaneous solution (Lantus U-100 Insulin) metoprolol tartrate 50 mg tablet 50 mg PO BID 08/20/20 01/29/24 History semaglutide 1 mg/dose (2 mg/1.5 2 mg subcut QWEEK 08/20/20 01/29/24 History mL) subcutaneous pen injector (Ozempic) vitamin B complex-vitamin C-folic 1 tab PO QDAY 08/20/20 01/29/24 History acid 800 mcg chewable tablet (Dialyvite 800) clonidine HCl 0.2 mg tablet 0.2 mg PO BID 05/16/22 01/29/24 History escitalopram oxalate 20 mg tablet 20 mg PO HS 05/16/22 01/29/24 History glimepiride 2 mg tablet 2 mg PO BID 05/16/22 01/29/24 History levothyroxine 100 mcg tablet 100 mcg PO DAILY 05/16/22 01/29/24 History valsartan 320 1 tab PO QDAY 05/16/22 01/29/24 History mg-hydrochlorothiazide 25 mg tablet sevelamer carbonate 800 mg tablet 800 mg PO QDAY 01/29/24 01/29/24 History Allergies Allergy/AdvReac Type Severity Reaction Status Date / Time No Known Allergies Allergy Verified 05/14/23 10:14 Visit Medications Acetaminophen (Acetaminophen 325 Mg Tablet) 650 mg PO Q6H PRN PRN Reason: PAIN SCALE 1-3 (mild Stop: 02/28/24 09:56 Bisacodyl (Bisacodyl 5 Mg Tabec) 10 mg PO QDAY PRN; Protocol PRN Reason: CONSTIPATION Stop: 02/28/24 09:56 Dextrose (Dextrose 50%-Water Inj 50 Ml Syringe) 25 ml IV Q15MIN PRN PRN Reason: BG 50-70 responsive npo pt Stop: 02/28/24 10:01 Dextrose (Dextrose 50%-Water Inj 50 Ml Syringe) 50 ml IV Q15MIN PRN PRN Reason: BG <50 OR BG <70 & pt unresponsive Stop: 02/28/24 10:01 Glucagon (Glucagon Inj 1 Mg Vial) 1 mg IM Q15MIN PRN PRN Reason: BG <70, and no IV access Heparin Sodium (Porcine) (Heparin Sod Inj 5000 Unit/Ml Vial) 5,000 unit SC Q8HR [facility] Stop: 02/12/24 13:59 Last Admin: 01/29/24 15:54 Dose: 5,000 unit Hydralazine HCl (Hydralazine Inj 20 Mg/Ml Vial) 10 mg IV Q6HR PRN PRN Reason: Hypertension Stop: 02/28/24 12:57 Insulin Human Lispro (Insulin Lispro (Admelog) 1 Unit/0.01 Ml Unit) 0 unit SC [facility]; Protocol Stop: 02/28/24 11:29 Last Admin: 01/29/24 11:26 Dose: 3 unit Levothyroxine Sodium (Levothyroxine Sodium 100 Mcg Tablet) 100 mcg PO ACBR [facility] Stop: 02/29/24 05:59 Metoprolol Succinate (Metoprolol Succinate Xl 25 Mg Tabcr) 50 mg PO QDAY [facility] Stop: 02/28/24 13:14 Last Admin: 01/29/24 15:52 Dose: 50 mg Ondansetron HCl (Ondansetron Inj 2 Mg/Ml Inj 2 Ml) 4 mg IV Q6H PRN; Protocol PRN Reason: NAUSEA OR VOMITING Stop: 02/28/24 09:56 Oxycodone/Acetaminophen (Oxycodone/Apap 5/325 Tablet) 1 tab PO Q6H PRN PRN Reason: PAIN SCALE 4-6 (Moderate Stop: 02/03/24 09:56 Sennosides (Senna Tablet) 1 tab PO QDAY PRN; Protocol PRN Reason: constipation Stop: 02/28/24 09:56 Valsartan (Valsartan 80 Mg Tablet) 160 mg PO BID [facility] Stop: 02/28/24 20:59 Discontinued Medications Acetaminophen (Acetaminophen 325 Mg Tablet) 650 mg PO X1 ONE Stop: 01/29/24 09:29 Last Admin: 01/29/24 09:59 Dose: 650 mg Epoetin Manuel (Epoetin Manuel-Epbx Inj 10,000 Unit/Ml Vial (Esrd)) 10,000 unit SC X1 ONE Stop: 01/29/24 07:30 Last Admin: 01/29/24 10:13 Dose: 10,000 unit Hydralazine HCl (Hydralazine Inj 20 Mg/Ml Vial) 10 mg IV X1 ONE Stop: 01/29/24 07:08 Last Admin: 01/29/24 07:15 Dose: 10 mg Hydralazine HCl (Hydralazine Hcl 25 Mg Tablet) 50 mg PO BID [facility] Stop: 02/28/24 20:59 Hydralazine HCl (Hydralazine Inj 20 Mg/Ml Vial) 10 mg IV PRN PRN PRN Reason: Hypertension Stop: 02/28/24 12:57 Metoprolol Tartrate (Metoprolol Tartrate Inj 1 Mg/Ml Amp 5 Ml) 5 mg IVP X1 ONE Stop: 01/29/24 04:38 Last Admin: 01/29/24 04:50 Dose: 5 mg Assessment & Plan Plan The patient is a 73-year-old female with a previous medical history of end-stage renal disease on hemodialysis (), last dialysis session on sunday, hypothyroidism, hypertension, diabetes who came to the ED with shortness of breath and episode of loss of consciousness. #Hypertensive emergency #Acute hypoxic respiratory failure, resolved #Syncopal episode Most likely due to fluid overload. Patient had a BP >200/100 at the admission. Chest Xray showed mild CHF. Plan: - Valsartan 160 mg BID - Metoprolol succinate 50 mg daily - Hydralazine 10 mg IV PRN if BP >180/100 - Hemodialysis with goal to remove 3L of fluid - Strict I's and O's - Obtain daily weight #Possible paroxysmal A-fib In the ED monitoring showed irregular heart rate. HR 78. Plan: - continue monitoring - repeat EKG #ESRD on HD (/Sun) 01/29/24: Patient will have dialysis today, plan to remove 3 L of fluid. Plan: - continue with dialysis as scheduled #Hypothyroidism Plan: - Resumed home levothyroxine #Type 2 diabetes mellitus Plan: - sensitive ISS with Accu-checks Health maintenance: FEN: Renal diet carbohydrate consistent DVT prophylaxis: heparin sc GI prophylaxis: none Dispo: tele bed CODE STATUS: Full code Plan of care discussed with attending Dr. Glez. Fawn Herrera MD, PGY 1. Attending Provider Attestation/Addendum Patient seen and examined with resident physician Dr. Augustine. Note reviewed, agree with findings and recommendations. Patient admitted with uncontrolled hypertension, fluid overload. Patient currently seen on dialysis. Tolerating dialysis without any problems. Hemodialysis for 3 hours, 2K, ultrafiltration 2-3 L, Epogen 6000, no heparin ordered. Plan of care discussed with the dialysis nurse. Please see dialysis flowsheet for further details.
[2024-01-29 17:04] LABS: Hepatitis A Antibody IgM Non Reactive (Non React); Hepatitis B Core Antibody IgM Non Reactive (Non React); Hepatitis B Surface Ab Reactive (Immune) (Immune); Hepatitis B Surface Antigen Non Reactive (Non React); Hepatitis C Antibody Non Reactive (Non React)
[2024-01-29] MEDS: VALSARTAN 80 MG TABLET 160 MG PO (22:09)
[2024-01-30] VITALS (16 sets, daily range): BP systolic 142–185; BP diastolic 66–88; PULSE 79–104; RESP 17–94; TEMP 35.9–36.7; O2SAT 92–97
[2024-01-30] MEDS: LEVOTHYROXINE SODIUM 100 MCG TABLET PO (05:30)
[2024-01-30] MEDS: HEPARIN SOD INJ 5000 UNIT/ML VIAL SC ×2 (05:30→14:35)
[2024-01-30 06:04] LABS: Basophils # (Auto) 0.1 Thou/mm3 (0.0-0.2); Basophils % (Auto) 1 % (0-2.5); Eosinophils # (Auto) 0.1 Thou/mm3 (0.0-0.5); Eosinophils % (Auto) 1 % (0-10); Hematocrit 31.9 % (36.0-46.0); Hemoglobin 10.6 g/dL (12.0-16.0); Immature Granulocytes % (Auto) 0 % (0-0); Immature Granulocytes Auto 0.03 Thou/mm3 (0.00-0.00); Lymphocytes # (Auto) 2.2 Thou/mm3 (1.0-4.8); Lymphocytes % (Auto) 29 % (10-50); Mean Corpuscular HGB Conc 33.2 g/dl (31.0-37.0); Mean Corpuscular Hemoglobin 31.3 pg (25.0-35.0); Mean Corpuscular Volume 94 fL (80-100); Monocytes # (Auto) 0.7 Thou/mm3 (0.0-0.8); Monocytes % (Auto) 9 % (0-12); Neutrophils # (Auto) 4.5 Thou/mm3 (1.8-7.7); Neutrophils % (Auto) 60 % (37-80); Nucleated Red Blood Cell % 0 /100 WBC (0); Platelet Count 239 Thou/mm3 (140-440); RDW Standard Deviation 45.8 fL (36.4-46.3); Red Blood Count 3.39 Miln/mm3 (4.00-5.20); White Blood Count 7.6 Thou/mm3 (3.6-11.0)
[2024-01-30 06:18] LABS: Glucose Estimated Average 174 mg/dL (80-131); Hemoglobin A1C 7.7 % Hgb (4.8-6.0)
[2024-01-30 06:36] LABS: Alanine Aminotransferase 25 U/L (10-49); Albumin, Serum 4.2 gm/dL (3.4-4.8); Albumin/Globulin Ratio 1.4 (1.2-2.2); Alkaline Phosphatase 206 U/L (46-116); Anion Gap 12 (7-16); Aspartate Amino Transferase 24 U/L (0-34); BUN/Creatinine Ratio 8 Ratio (12-20); Bilirubin,Total 0.5 mg/dL (0.3-1.2); Blood Urea Nitrogen 41 mg/dL (9-23); Calcium 9.1 mg/dL (8.3-10.6); Calcium (Corrected) 9.1 mg/dL (8.5-10.1); Carbon Dioxide 24.8 mMol/L (20.0-31.0); Chloride 95 mMol/L (98-107); Estimated Creatinine Clearance 9.6 mL/min (>60); Glucose 182 mg/dL (74-106); Osmolality,Calculated 279 (275-295); Phosphorous 4.1 mg/dL (2.4-5.1); Potassium 4.8 mMol/L (3.4-5.1); Sodium 132 mMol/L (136-145); Total Protein 7.2 gm/dL (5.7-8.2); eGFR 9 See Note
[2024-01-30] MEDS: hydrALAZINE INJ 20 MG/ML VIAL 10 MG IV (07:26)
[2024-01-30] MEDS: INSULIN LISPRO (AdmeLOG) 1 UNIT/0.01 ML UNIT SC ×3 (07:41→17:34)
[2024-01-30] MEDS: hydrALAZINE HCL 25 MG TABLET 50 MG PO ×2 (09:27→19:42)
[2024-01-30] MEDS: VALSARTAN 80 MG TABLET 160 MG PO ×2 (09:28→19:41)
[2024-01-30] MEDS: METOPROLOL SUCCINATE XL 25 MG TABCR 100 MG PO (09:29)
[2024-01-30] MEDS: ACETAMINOPHEN 325 MG TABLET 650 MG PO (11:55)
--- NOTE | 2024-01-30 14:22 | PC.SS ---
Rounding: fluid overload, continue scheduled HD 01/30
--- NOTE | 2024-01-30 15:12 | ESDS_ITS ---
Planned Discharge Date 01/30/24 DS: Providers Provider Date of admission: 01/29/24 09:57 Primary care physician: Roderick Glez MD Admitting Provider: Roderick Glez MD Attending Provider on Admission: Roderick Glez MD Consults: 01/29/24 07:28 Consult to Nephrology Stat Comment: Consulting Provider: Roderick Glez 01/29/24 22:40 Referral Infection Control Routine Comment: Reason for Infection Control Referral: Current Dialysis Patient Attending Provider on DC: Fawn Herrera MD Discharging Provider: Fawn Herrera MD DS: Diagnosis Problem List Completed Was Problem List Reviewed/Reconciled?: Yes Hospital Course Hospital Course Hospital course: The patient is a 73-year-old female with a previous medical history of end-stage renal disease on hemodialysis (), last dialysis session on sunday, hypothyroidism, hypertension, diabetes who came to the ED with shortness of breath and episode of loss of consciousness. Her daughter is at the bedside, reports that she started feeling unwell the day before with shortness of breath and cough, feeling of pressure in her chest. 01/29/2024 at approximately 3 AM she reported that she felt severely short of breath and briefly lost consciousness and stopped breathing. Daughter denies any trauma, patient was sitting on the sofa when lost conscioussness. Patient was admitted due to hyp ertensive emergency due to fluid overload. She received her dialysis as scheduled, 3 L of fluid was removed. She was started on blood pressure medications, her blood pressure medications regimen was changed. She was started on metoprolol 100 mg succinate daily, valsartan 180 mg twice daily, hydralazine 50 mg twice daily. BP improved, went down to the 140s. She is set to be discharged home and continue her dialysis as scheduled. Hospital diagnoses: #Hypertensive emergency, resolved #Acute hypoxic respiratory failure, resolved #Syncopal episode #Possible paroxysmal A-fib #ESRD on HD () #Hypothyroidism #Type 2 diabetes mellitus Discharge recommendations: ?Start taking metoprolol tartrate 50 mg bid ? Start taking valsartan 320 mg daily ? Start taking hydralazine 50 mg 3/ daily ? Follow-up with Dr. Glez in 1 to 2 weeks ? Follow-up with Dr. Anumandla in 1 to 2 weeks ?If your condition worsens, come to the ED Plan of care discussed with attending Dr. Glez. Fawn Herrera MD, PGY 1. Status at Discharge Cognitive/behavioral status at discharge: stable Functional status at discharge: independent ambulation Overall status at discharge: patient is back to baseline Time Spent with Patient Time attestation: Total time spent providing and/or coordinating discharge services: 35 min Exam Vital Signs Temp Pulse Resp BP Pulse Ox O2 Del Method O2 Flow Rate 97.2 F 104 H 17 142/72 H 92 L Room Air 2 01/30/24 12:00 01/30/24 12:00 01/30/24 12:01/30/24 12:01/30/24 12:01/30/24 12:01/29/24 10:06 Narrative Exam Physical Exam General: Awake and in no acute distress. Conversational and non-toxic appearing. HEENT: Normocephalic, atraumatic, mucous membranes moist. Heart: Regular rate, no murmurs. Lungs: CTA b/l Abdomen: Soft, nondistended, diffusely mildly tender, positive bowel sounds. ?No guarding or rebound tenderness. Neurologic: Alert and oriented x3, no gross neurological deficit, and patient able to move all 4 extremities. Extremities: No edema. Skin: No rash or ecchymoses. Discharge Plan Plan Patient Disposition: HOME (Self Care) Disposition Comment: Stable for admit Prescriptions/Referrals Prescriptions/Med Rec: New valsartan 320 mg tablet 320 mg PO QDAY Qty: 30 0RF Continued atorvastatin 40 mg Tablet 20 mg PO HS metoprolol tartrate 50 mg Tablet 50 mg PO BID hydralazine 50 mg Tablet 50 mg PO TID Dialyvite 800 800 mcg Tablet,Chewable 1 tab PO QDAY insulin glargine [Lantus U-100 Insulin] 100 unit/mL Solution 20 unit SUBCUT BID Ozempic 1 mg/dose (2 mg/1.5 mL) Pen Injector 2 mg SUBCUT QWEEK glimepiride 2 mg Tablet 2 mg PO BID escitalopram oxalate 20 mg Tablet 20 mg PO HS levothyroxine 100 mcg Tablet 100 mcg PO DAILY sevelamer carbonate 800 mg Tablet 800 mg PO QDAY Rx Instructions: must administer with a meal/food Discontinued furosemide 20 mg Tablet 20 mg PO BID valsartan-hydrochlorothiazide 320-25 mg Tablet 1 tab PO QDAY clonidine HCl 0.2 mg Tablet 0.4 mg PO BID Referrals: Roderick Glez MD [Primary Care Provider] - Patient/Caregiver Discharge Instructions Discharge Activity: activity as tolerated Education Materials: CKD Dc Print Language: Upper Sorbian Activity Restrictions/Additional Instructions: Discharge recommendations: ?Start taking metoprolol tartrate 50 mg bid ? Start taking valsartan 320 mg daily ? Start taking hydralazine 50 mg 3/ daily ? Follow-up with Dr. Glez in 1 to 2 weeks ? Follow-up with Dr. Bello in 1 to 2 weeks ?If your condition worsens, come to the ED Stand Alone Forms: Judith Award Info., Patient Portal Info Letter Discharge Order Discharge Orders: Discharge (Routine); Ordered 01/30/24 Ordered By: Roderick Glez Quality Discharge Quality Measures VTE prophylaxis MD Attestestation MD Attestation Patient seen and examined with resident physician Dr. Augustine. Note reviewed, agree with findings and recommendations. Patient admitted with uncontrolled hypertension, fluid overload.
--- NOTE | 2024-01-30 19:27 | PC.NURSE ---
notified Dr. glez of patients bp 179/88 asymptomatic. she said to give po bp meds early from 9 pm and dc as planned with daughter at bedside. she agreed on plan of care.
== END 2024-01-30 19:57 | disposition home or self-care (01) | DRG 640 ==
LOC: SERX 07:57 → SERHOLD 10:11 → S2NX 21:03
PROVIDERS: Emergency Medicine; Admitting Provider Internal Medicine; Emergency Provider Emergency Medicine; PCP Internal Medicine; Visit Provider Internal Medicine
DX: E87.70 Fluid overload, unspecified (principal); J96.01 Acute respiratory failure with hypoxia; N18.6 End stage renal disease; I16.1 Hypertensive emergency; I13.2 Hypertensive heart and chronic kidney disease with heart failure and with stage 5 chronic kidney disease, or end stage renal disease; I50.9 Heart failure, unspecified; E03.9 Hypothyroidism, unspecified; E11.22 Type 2 diabetes mellitus with diabetic chronic kidney disease; E11.42 Type 2 diabetes mellitus with diabetic polyneuropathy; E78.00 Pure hypercholesterolemia, unspecified; I48.0 Paroxysmal atrial fibrillation; Z99.2 Dependence on renal dialysis; Z79.899 Other long term (current) drug therapy; Z79.890 Hormone replacement therapy; Z79.84 Long term (current) use of oral hypoglycemic drugs; Z79.4 Long term (current) use of insulin; Z79.85 Long-term (current) use of injectable non-insulin antidiabetic drugs
CPT/HCPCS: 36415; 71045; 80053; 80074; 83036; 83735; 83880; 84100; 84484; 85025; 86706; 87081; 87811; 93005; 93306; 96374; 99291; J0360; J1643; J1815; J3490; Q5105; A9270; J1644

== ENCOUNTER → 2024-05-13 | Outpatient (CLI) | payer MEDICARE, MEDICAID, SELFPAY ==
[2024-05-13 10:18] LABS: OBS Performed By LAB; OBS QC OK? Yes
[2024-05-13 11:40] LABS: Occult Blood, Stool Negative (Negative); Occult Blood, Stool #2 Negative (Negative); Occult Blood, Stool #3 Negative (Negative)
[2024-05-13 11:41] LABS: OBS Developer Expiration Date 123126; OBS Developer Lot # 1-24-551749
== END | disposition home or self-care (01) ==
LOC: SLDO 10:09
PROVIDERS: PCP Internal Medicine; Referring Provider Internal Medicine; Visit Provider Internal Medicine
DX: Z12.11 Encounter for screening for malignant neoplasm of colon (principal)
CPT/HCPCS: 82270

== ENCOUNTER 2024-06-19 05:52 | Observation (INO) | payer MEDICARE, SELFPAY ==
[2024-06-19] VITALS (26 sets, daily range): BP systolic 97–217; BP diastolic 50–102; PULSE 63–113; RESP 18–25; TEMP 36.6–37.3; O2SAT 97–100; BMI 33.8
--- NOTE | 2024-06-19 06:41 | EKG_ITS ---
[facility] Test Date: 2024-06-19 Pat Name: MAIK GILLETTE Department: Room: - Gender: Female Anthropometrist: : 1950 Requested By: ED Temporary Provider Order Number: [id number] Reading MD: ED Temporary Provider Measurements Intervals Olga Rate: 92 P: -6 VT: 220 QRS: 254 QRSD: 137 T: 32 QT: 411 QTc: 511 Interpretive Statements SINUS RHYTHM WITH FIRST DEGREE AV BLOCK INDETERMINATE AXIS RIGHT BUNDLE BRANCH BLOCK [120+ ms QRS DURATION, UPRIGHT V1, 40+ ms S IN I/aVL/V4/V5/V6] Compared to ECG 05/27/2022 13:47:03 First degree AV block now present Indeterminate axis now present Junctional rhythm no longer present Left-axis deviation no longer present /store/S0/[id number].pdf
--- NOTE | 2024-06-19 06:45 | PC.NURSE ---
PT BIB EMS WITH C/O SUDDEN ONSET SOB, PER PT, SHE HAS NOT HAD DIALYSIS IN 3 DAYS, NORMAL DIALYSIS DAYS ARE(,,S), LAST TIME SHE WAS DIALIZED WAS SUNDAY. PT STATES SHE FEELS PRESSURE , TO CHEST, RATING 8/10, AND FEELS SOB, PT PRESENTS TO ER HYPERTENSIVE, BP: 197/84, HR 95, RR 25, AND SOB, PT ON 6L O2 SATS AND SATTING 100% PT STATES SHE WEARS HOME O2 NORMAL ON 2L NC. PER EMS, 3.6MG NITRO SL, AND 2IN NITRO PASTE TO LEFT CHEST. 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 DR AGUILA AT BEDSIDE ASSESSING PT AT THIS TIME. CALL LIGHT WITHIN REACH. BED AT LOWEST POSITION. PT UPDATED ON PLAN OF CARE.
--- NOTE | 2024-06-19 07:10 | PD.EDSOB ---
ED SOB =RME/HPI General Chief Complaint: Shortness of Breath/Dyspnea Stated Complaint: SHORTNESS OF BREATH Time Seen by Provider: 06/19/24 06:47 Arrival date/time: 06/19/24 05:52 RME / HPI RME / HPI Narrative: The patient is a 74-year-old female with significant past medical history of ESRD on HD TTS, last hemodialysis session was done on Sunday as she was supposed to have an appointment at [place] for reevaluation of her fistula, presented to ED by EMS on 06/19/2024 with chief complaint of SOB and pressure-like chest pain that started earlier this morning. At home she is on 2 L O2, currently requiring 6 L oxygen via NC. Her symptoms are associated with headache, and she reported her chest pain has been similar to previous episode when she missed hemodialysis session, and improved after hemodialysis and removal of fluid. She denied any sore throat, sick contact, abdominal pain, any changes in bowel or bladder habit, or leg swelling. She also denied any fever or chills, nausea or vomiting. Related Data Home Medications ?Medication ?Instructions ?Recorded ?Confirmed atorvastatin 40 mg tablet 20 mg PO HS 08/20/20 01/29/24 hydralazine 50 mg tablet 50 mg PO TID 08/20/20 01/29/24 insulin glargine 100 unit/mL 20 unit subcut BID 08/20/20 01/29/24 subcutaneous solution (Lantus U-100 Insulin) metoprolol tartrate 50 mg tablet 50 mg PO BID 08/20/20 01/30/24 semaglutide 1 mg/dose (2 mg/1.5 2 mg subcut QWEEK 08/20/20 01/29/24 mL) subcutaneous pen injector (Ozempic) vitamin B complex-vitamin C-folic 1 tab PO QDAY 08/20/20 01/29/24 acid 800 mcg chewable tablet (Dialyvite 800) escitalopram oxalate 20 mg tablet 20 mg PO HS 05/16/22 01/29/24 glimepiride 2 mg tablet 2 mg PO BID 05/16/22 01/29/24 levothyroxine 100 mcg tablet 100 mcg PO DAILY 05/16/22 01/29/24 sevelamer carbonate 800 mg tablet 800 mg PO QDAY 01/29/24 01/29/24 Previous Rx's ?Medication ?Instructions ?Recorded valsartan 320 mg tablet 320 mg PO QDAY #30 tabs 01/30/24 Allergies Allergy/AdvReac Type Severity Reaction Status Date / Time morphine AdvReac Intermediate Cramping Verified 06/19/24 07:41 of the Muscles Review of Systems Review of Systems Systems Reviewed: All systems reviewed, normal except as documented ED Exam Narrative Physical exam: General: Elderly, cooperative woman, no acute distress, Alert and Oriented x 3 HEENT: Moist mucous membranes, oropharynx clear Neck: Supple, No masses, No JVD CVS: S1S2 Regular rate and rhythm, No murmurs, rubs or gallops Lungs: Bilateral crackles up to the mid lung lobes, no wheeze, mild rhonchi throughout the lung field Abd: Soft, NT/ND, +BS, no organomegaly Ext: No edema, warm and well perfused Skin: No rash Psych: Appropriate mood and affect Course Course Course Narrative: 6:41 AM: EKG was done, revealed sinus rhythm with first degree AV block. 6:55 AM ordered lab and chest x-ray 9:58 AM: Consulted hospitalist team C, Dr. Mosqueda regarding admission Quality Measures none Orders Category Date Time Status Patient Condition Routine Admission 06/19/24 09:[address] in Observation Status Routine Admission 06/19/24 09:54 Active Activity as Tolerated Routine Care 06/19/24 09:55 Ordered EKG (ED ONLY) *Do not use* NOW Care 06/19/24 06:41 Completed Flu & Pneumonia Vaccine Screen ONCE Care 06/19/24 09:54 Active Notify provider NEEDED Care 06/19/24 09:54 Active Obtain weight daily Care 06/19/24 09:55 Active Sequential Compression Device QSHIFT Care 06/19/24 09:54 Active Consult to Nephrology Stat Cons 06/19/24 07:01 Ordered Diet Renal Diet 06/19/24 Lunch Active EKG (ED Only) Stat Exams 06/19/24 06:41 Draft XR chest 1V portable Stat Exams 06/19/24 07:51 Completed B-Type Natriuretic Peptide Stat Lab 06/19/24 10:01 Received Blood Culture (Lab) Stat Lab 06/19/24 08:31 Received CBC AM DRAW Lab 06/20/24 05:00 Ordered CBC AM DRAW Lab 06/21/24 05:00 Ordered CBC AM DRAW Lab 06/22/24 05:00 Ordered CBC Stat Lab 06/19/24 07:00 Completed Comprehensive Metabolic Panel AM DRAW Lab 06/20/24 05:00 Ordered Comprehensive Metabolic Panel AM DRAW Lab 06/21/24 05:00 Ordered Comprehensive Metabolic Panel AM DRAW Lab 06/22/24 05:00 Ordered Comprehensive Metabolic Panel Stat Lab 06/19/24 07:00 Completed Magnesium AM DRAW Lab 06/20/24 05:00 Ordered Magnesium Stat Lab 06/19/24 07:00 Completed Partial Thromboplastin Time Stat Lab 06/19/24 07:00 Completed Phosphorous AM DRAW Lab 06/20/24 05:00 Ordered Potassium Routine Lab 06/19/24 10:01 Completed Prothrombin Time with INR Stat Lab 06/19/24 07:00 Completed Troponin I Stat Lab 06/19/24 07:00 Completed Urinalysis Stat Lab 06/19/24 08:20 Completed ALBUTEROL RT 3ml [Proventil Rt 3ml] Med 06/19/24 07:38 Discontinued 10 mg INH X1 ONE Acetaminophen Tab [Tylenol Tab] Med 06/19/24 09:54 Active 650 mg PO Q6H PRN Calcium Gluconate 10% Inj Med 06/19/24 07:38 Discontinued 1 gm IV X1 ONE Dextrose 50% Syr [D50w Syringe Abboject] Med 06/19/24 07:45 Discontinued 50 ml IV X1 ONE HYDROmorphone INJ [Dilaudid Inj] Med 06/19/24 07:13 Discontinued 0.5 mg IVP X1 ONE Insulin Regular Med 06/19/24 07:38 Discontinued 5 unit IV X1 ONE Ondansetron Inj [Zofran Inj] Med 06/19/24 09:54 Active 4 mg IV Q6H PRN Senna [Senokot] Med 06/19/24 09:54 Active 1 tab PO QDAY PRN Sod Polystyrene Sulfon Susp [Kayexalate Susp] Med 06/19/24 07:38 Discontinued 30 gm PO X1 ONE amLODIPine BESYLATE [Norvasc] Med 06/19/24 09:39 Discontinued 5 mg PO X1 ONE Code Status Routine Oth 06/19/24 09:54 Ordered Vital Signs Vital signs: Vital Signs Temperature 99.2 F 06/19/24 06:35 Pulse Rate 94 06/19/24 06:35 Respiratory Rate 25 H 06/19/24 06:35 Blood Pressure 197/84 H 06/19/24 06:35 Pulse Oximetry (%) 100 06/19/24 06:35 Oxygen Delivery Method Nasal Cannula 06/19/24 06:35 Oxygen Flow Rate 6 06/19/24 06:35 Shortness of Breath / Dyspnea MDM Narrative MDM Narrative:: The patient is a 74-year-old female with significant past medical history of ESRD on HD TTS, last hemodialysis session was done on Sunday as she was supposed to have an appointment at [place] for reevaluation of her fistula, presented to ED by EMS on 06/19/2024 with chief complaint of SOB and pressure-like chest pain that started earlier this morning. At home she is on 2 L O2, currently requiring 6 L oxygen via NC. Her symptoms are associated with headache, and she reported her chest pain has been similar to previous episode when she missed hemodialysis session, and improved after hemodialysis and removal of fluid. She denied any sore throat, sick contact, abdominal pain, any changes in bowel or bladder habit, or leg swelling. She also denied any fever or chills, nausea or vomiting. EMS chart revealed blood pressure of 218/104. The patient was given 0.4 Mg sublingual nitro and 1 inch nitro tape. In the ED her blood pressure had improved to 197/84. Pulse 94, RR 25 and temperature 99.2 saturating 100% on 6 L NC. Labs are significant for hemoglobin 8.8, sodium 131, potassium 6.4, chloride 96, BUN 67, creatinine 6.8, GFR 6, blood sugar 329, bilirubin total 0.2, AST/ALT/ALP 36/43/237. EKG revealed sinus rhythm with first-degree AV block. Chest x-ray as interpreted by me was significant for bilateral pleural effusion with pulmonary edema. The patient was given hydromorphone 0.5 Mg IV x 1 for headache and chest pain, Kayexalate 30 g p.o. x 1, calcium gluconate 1 g IV x 1, regular insulin 5 units IV x 1 and albuterol 10 Mg INH x 1 for hyperkalemia. The patient was not given antibiotics as patient did not had any fever, white count 9.6 and her SOB was most likely secondary to volume overload secondary to delayed hemodialysis. Patient data External records reviewed:: [facility] previous records Clinical information provided by:: patient and EMS Social determinants that could affect healthcare access:: none Patient has the following chronic illnesses:: See above How is presenting disease/condition affected by chronic disease/condition?: caused by Evaluation data The following diagnostics were reviewed and interpreted by me:: lab results, radiology exam(s) and EKG tracing(s) Lab and/or radiology exams considered but not ordered:: See above Interpretation Summary: See above Medications / Prescriptions Medications or Prescriptions considered but not ordered:: ABG Medication administrations:: Medication Administration History Acetaminophen (Acetaminophen 325 Mg Tablet) 650 mg PO Q6H PRN PRN Reason: Pain 1-3 and/or Fever >100.1 Stop: 07/19/24 09:53 Ondansetron HCl (Ondansetron Inj 2 Mg/Ml Inj 2 Ml) 4 mg IV Q6H PRN; Protocol PRN Reason: NAUSEA OR VOMITING Stop: 07/19/24 09:53 Sennosides (Senna Tablet) 1 tab PO QDAY PRN; Protocol PRN Reason: constipation Stop: 07/19/24 09:53 Discontinued Medications Albuterol (Albuterol Rt 2.5 Mg/3 Ml Nebu) 10 mg INH X1 ONE Stop: 06/19/24 07:39 Last Admin: 06/19/24 08:02 Dose: 10 mg Documented By: GIAN Amlodipine Besylate (Amlodipine Besylate 5 Mg Tablet) 5 mg PO X1 ONE Stop: 06/19/24 09:40 Last Admin: 06/19/24 09:47 Dose: 5 mg Documented By: ZOFIA Calcium Gluconate (Calcium Gluconate 10% Inj 1 Gm/10 Ml Vial) 1 gm IV X1 ONE Stop: 06/19/24 07:39 Last Admin: 06/19/24 08:04 Dose: 1 gm Documented By: ZOFIA Dextrose (Dextrose 50%-Water Inj 50 Ml Syringe) 50 ml IV X1 ONE Stop: 06/19/24 07:46 Last Admin: 06/19/24 08:17 Dose: Not Given Documented By: ZOFIA Non-Admin Reason: Other, see note Comments: PER DR. AGUILA, DONT GIVE THIS MED DUE TO PT BLOOD SUGAR 272 Hydromorphone HCl (Hydromorphone Inj 2 Mg/Ml Vial) 0.5 mg IVP X1 ONE Stop: 06/19/24 07:14 Last Admin: 06/19/24 08:03 Dose: 0.5 mg Documented By: ZOFIA Insulin Human Regular (Insulin Hum Regular 1 Unit/0.01 Ml (Per Unit)) 5 unit IV X1 ONE Stop: 06/19/24 07:39 Last Admin: 06/19/24 08:04 Dose: 5 unit Documented By: ZOFIA Co-signed By: LUIS IMGUEL Sodium Polystyrene Sulfonate (Sod Polystyrene Sulfon Susp 15 Gm/60 Ml Btl) 30 gm PO X1 ONE Stop: 06/19/24 07:39 Last Admin: 06/19/24 08:08 Dose: 30 gm Documented By: ZOFIA See above Consultations Consultation(s) initiated? (list below): Yes Consultation #1 (Physician, Specialty, Details): Charge Hand Dr. Herring Time: 07:01 Consultation #2 (Physician, Specialty, Details): Hospitalist team C Dr. Mosqueda Time: 09:48 Diagnosis Shortness of Breath Differential Diagnosis: congestive heart failure, community acquired pneumonia and other (Volume overload 2/2 missed hemodialysis) Most likely diagnosis given after review of the tests above:: Volume overload 2/2 missed hemodialysis Admission Indicated Admission indicated?: indicated Admission Request Was there a request for admission?: Yes Admission Attestation Admission request attestation: Discussed case with Dr. Mosqueda from Hospitalist service regarding admission. Discussed patients ED course, exam findings, labs, and radiology results. The Hospitalist team agrees to accept the patient for admission. Disposition Plan Disposition Plan: Admit Discharge Plan Plan Patient Disposition: Admit Acute Care w/in Hospital Problem List Clinical Impression: Acute and chronic respiratory failure with hypoxia, Volume overload
[2024-06-19 07:34] LABS: Alanine Aminotransferase 43 U/L (10-49); Albumin, Serum 3.8 gm/dL (3.4-4.8); Albumin/Globulin Ratio 1.2 (1.2-2.2); Alkaline Phosphatase 237 U/L (46-116); Anion Gap 11 (7-16); Aspartate Amino Transferase 36 U/L (0-34); BUN/Creatinine Ratio 10 Ratio (12-20); Bilirubin,Total 0.2 mg/dL (0.3-1.2); Blood Urea Nitrogen 67 mg/dL (9-23); Calcium 8.6 mg/dL (8.3-10.6); Calcium (Corrected) 8.8 mg/dL (8.5-10.1); Carbon Dioxide 24.4 mMol/L (20.0-31.0); Chloride 96 mMol/L (98-107); Creatinine (Component) 6.8 mg/dL (0.6-1.3); Estimated Creatinine Clearance 7.2 mL/min (>60); Globulin 3.1 gm/dL (2.3-3.5); Glucose 329 mg/dL (74-106); Magnesium 2.6 mg/dL (1.6-2.6); Osmolality,Calculated 295 (275-295); Sodium 131 mMol/L (136-145); Total Protein 6.9 gm/dL (5.7-8.2); eGFR 6 See Note
[2024-06-19 07:36] LABS: Basophils # (Auto) 0.1 Thou/mm3 (0.0-0.2); Basophils % (Auto) 1 % (0-2.5); Eosinophils # (Auto) 0.2 Thou/mm3 (0.0-0.5); Eosinophils % (Auto) 2 % (0-10); Hematocrit 26.1 % (36.0-46.0); Immature Granulocytes % (Auto) 0 % (0-0); Immature Granulocytes Auto 0.03 Thou/mm3 (0.00-0.00); Lymphocytes # (Auto) 1.2 Thou/mm3 (1.0-4.8); Lymphocytes % (Auto) 13 % (10-50); Mean Corpuscular HGB Conc 33.7 g/dl (31.0-37.0); Mean Corpuscular Hemoglobin 31.1 pg (25.0-35.0); Mean Corpuscular Volume 92 fL (80-100); Monocytes # (Auto) 0.5 Thou/mm3 (0.0-0.8); Monocytes % (Auto) 5 % (0-12); Neutrophils # (Auto) 7.6 Thou/mm3 (1.8-7.7); Neutrophils % (Auto) 79 % (37-80); Nucleated Red Blood Cell % 0 /100 WBC (0); Platelet Count 249 Thou/mm3 (140-440); RDW Standard Deviation 44.7 fL (36.4-46.3); Red Blood Count 2.83 Miln/mm3 (4.00-5.20); White Blood Count 9.6 Thou/mm3 (3.6-11.0)
[2024-06-19 07:37] LABS: Potassium 6.4 mMol/L (3.4-5.1)
[2024-06-19 07:41] LABS: Hemoglobin 8.8 g/dL (12.0-16.0)
--- NOTE | 2024-06-19 07:51 | XR_ITS ---
Examination: AP chest single view Technique one AP portable upright chest single view Exam date and time: June 19, 2024 0755 hours Comparison January 29, 2024 INDICATIONS: Onset shortness of breath today FINDINGS: Mild to moderate CHF Mild enlargement cardiac contour. Prominent vascular congestion. Perihilar basilar edema with small to moderate bilateral pleural effusions Prominent osteopenia IMPRESSION: Mild to moderate CHF
[2024-06-19] MEDS: ALBUTEROL RT 2.5 MG/3 ML NEBU 10 MG INH (08:02)
[2024-06-19] MEDS: HYDROmorphone INJ 2 MG/ML VIAL 0.5 MG IVP (08:03)
[2024-06-19] MEDS: INSULIN HUM REGULAR 1 UNIT/0.01 ML (PER UNIT) 5 UNIT IV (08:04)
[2024-06-19] MEDS: CALCIUM GLUCONATE 10% INJ 1 GM/10 ML VIAL IV (08:04)
[2024-06-19] MEDS: SOD POLYSTYRENE SULFON SUSP 15 GM/60 ML BTL 30 GM PO (08:08)
[2024-06-19 08:38] LABS: Collection Type, Urine Clean Catch
[2024-06-19 08:52] LABS: Bilirubin,Urine Negative (Negative); Blood,Urine Negative (Negative); Clarity,Urine Clear (Clear/Hazy); Color,Urine Colorless (Lt Yel-Yel); Glucose, Urine 3+ (Negative); Ketones,Urine Negative (Negative); Leukocyte Esterase,Urine Negative (Negative); Nitrite,Urine Negative (Negative); PH,Urine 8.5 (5.0-7.0); Protein,Urine 2+ (Neg - Trace); RBC,Urine 2 /hpf (0-3); Squamous Epithelial Cell,Urine 2 /hpf (0-5); Urobilinogen,Urine Negative mg/dL (0.0-1.0); WBC,Urine < 1 /hpf (0-5)
[2024-06-19 09:03] LABS: Partial Thromboplastin Time 25.4 Seconds (22.0-36.0); Prothrombin Time 10.6 Seconds (9.0-12.2)
--- NOTE | 2024-06-19 09:03 | PD.RESCONSUL ---
HPI Data of Consult Patient: new to practice Consult date: 06/19/24 Requesting Physician: Mark Jacobo MD Admitting Provider: Benjamin Fuentes MD Attending Provider: Benjamin Fuentes MD Primary Care Provider: Physician No Primary/Family Consult Narrative Reason for consult: ESRD History of present illness: 74-year-old female with a previous medical history of end-stage renal disease on hemodialysis (), hypothyroidism, hypertension, insulin-dependent type 2 diabetes presenting to the ED on 06/19 after she had AV fistula repair sometime on Sunday (06/16/2024) and dialysis during that day. Patient unfortunately did not get dialysis on Sunday 06/18 and as a result this morning started feeling short of breath and weak. Patient's daughter Diana is bedside and provided some history. Per patient's daughter who lives with her, patient has dialysis secondary to ESRD from longstanding hypertension and insulin-dependent type 2 diabetes. In the ED, patient presented in hypertensive urgency with blood pressure 197/84, heart rate 94, respiratory 25, afebrile satting 100 on 6 L nasal cannula. Pertinent lab findings included fingerstick blood glucose of 235, WBC of 9.6, hemoglobin 8.8 with MCV of 92, sodium 131, potassium 6.4, BUN 67, creatinine 6.8, EGFR 6, magnesium 2.6, T. bili 0.2, AST 56, ALT 43, alk phosphatase 237, troponin 0.020, BNP 980. Urinalysis shows proteinuria and glucosuria but no signs of infection. EKG shows sinus rhythm with first-degree AV block and chest x-ray shows mild to moderate congestive heart failure with prominent vascular congestion, perihilar basilar edema with moderate bilateral pleural effusions. Nephrology consulted for acute hypoxic respiratory failure secondary to fluid overload secondary to missed dialysis session. Will manage inpatient dialysis. cc:: cc: Review of Systems Review of Systems Systems Reviewed: All systems reviewed, normal except as documented Past Medical History Past Medical History Comments PMH COMMENT: Medical history: As stated above Surgical history: Lumpectomy, AV fistula placement, Allergies: Morphine causes cramping Medications: Pending official med rec Family history: Extensive history of hypertension and type 2 diabetes Social history: Patient denies any alcohol, tobacco or illicit drug use. Lives with and daughter at home. Does not work currently. Exam Vital Signs Temp Pulse Resp BP Pulse Ox O2 Del Method O2 Flow Rate 98.7 F 103 H 20 202/91 H 100 Nasal Cannula 2 06/19/24 08:28 06/19/24 08:28 06/19/24 08:28 06/19/24 08:28 06/19/24 08:28 06/19/24 06:35 06/19/24 08:03 Narrative Exam Physical Exam: GENERAL: Awake, answering questions appropriately in Sami, appears stated age HEENT: NC/AT. Moist mucosa. PERRLA/EOMI. CARDIO: Heart RRR, no obvious murmurs, no JVD. PULM: No coughing or visible SOB but is on 2L of supplemental oxygen. Lungs CTA B/L. GI: Abdomen soft, NT/ND, +BS. SKIN/MSK/EXT: No wounds/discoloration/rashes/edema/amputations. +Pedal pulses present B/L. NEURO: Oriented x3, Moves extremities x4, no focal neurological deficits noted. Results Labs 06/20/24 05:22 06/20/24 05:22 Labs: Short CBC 06/19/24 Range/Units 07:00 WBC 9.6 (3.6-11.0) Thou/mm3 Hgb 8.8 L (12.0-16.0) g/dL Hct 26.1 L (36.0-46.0) % Plt Count 249 (140-440) Thou/mm3 BMP 06/19/24 07:00 Sodium 131 L Potassium 6.4 H* Chloride 96 L Carbon Dioxide 24.4 BUN 67 H Creatinine 6.8 H* Glucose 329 H Calcium 8.6 Cardiac Enzymes 06/19/24 Range/Units 07:00 Troponin I 0.020 (0.0-0.045) ng/mL Liver Function 06/19/24 Range/Units 07:00 Total Bilirubin 0.2 L (0.3-1.2) mg/dL AST 36 H (0-34) U/L ALT 43 (10-49) U/L Alkaline Phosphatase 237 H (46-116) U/L Albumin 3.8 (3.4-4.8) gm/dL Quality Measures Quality Measures none Advance care planning discussed with:: patient Medications Home Medications and Allergies Home Medications ?Medication ?Instructions ?Recorded ?Confirmed ?Type atorvastatin 40 mg tablet 20 mg PO HS 08/20/20 06/19/24 History hydralazine 50 mg tablet 50 mg PO TID 08/20/20 06/19/24 History insulin glargine 100 unit/mL 20 unit subcut BID 08/20/20 06/19/24 History subcutaneous solution (Lantus U-100 Insulin) metoprolol tartrate 50 mg tablet 50 mg PO BID 08/20/20 06/19/24 History semaglutide 1 mg/dose (2 mg/1.5 2 mg subcut QWEEK 08/20/20 06/19/24 History mL) subcutaneous pen injector (Ozempic) vitamin B complex-vitamin C-folic 1 tab PO QDAY 08/20/20 06/19/24 History acid 800 mcg chewable tablet (Dialyvite 800) escitalopram oxalate 20 mg tablet 20 mg PO HS 05/16/22 06/19/24 History levothyroxine 100 mcg tablet 100 mcg PO DAILY 05/16/22 06/19/24 History sevelamer carbonate 800 mg tablet 800 mg PO QDAY 01/29/24 06/19/24 History Allergies Allergy/AdvReac Type Severity Reaction Status Date / Time morphine AdvReac Intermediate Cramping Verified 06/19/24 07:41 of the Muscles Visit Medications Discontinued Medications Albuterol (Albuterol Rt 2.5 Mg/3 Ml Nebu) 10 mg INH X1 ONE Stop: 06/19/24 07:39 Last Admin: 06/19/24 08:02 Dose: 10 mg Calcium Gluconate (Calcium Gluconate 10% Inj 1 Gm/10 Ml Vial) 1 gm IV X1 ONE Stop: 06/19/24 07:39 Last Admin: 06/19/24 08:04 Dose: 1 gm Dextrose (Dextrose 50%-Water Inj 50 Ml Syringe) 50 ml IV X1 ONE Stop: 06/19/24 07:46 Last Admin: 06/19/24 08:17 Dose: Not Given Hydromorphone HCl (Hydromorphone Inj 2 Mg/Ml Vial) 0.5 mg IVP X1 ONE Stop: 06/19/24 07:14 Last Admin: 06/19/24 08:03 Dose: 0.5 mg Insulin Human Regular (Insulin Hum Regular 1 Unit/0.01 Ml (Per Unit)) 5 unit IV X1 ONE Stop: 06/19/24 07:39 Last Admin: 06/19/24 08:04 Dose: 5 unit Sodium Polystyrene Sulfonate (Sod Polystyrene Sulfon Susp 15 Gm/60 Ml Btl) 30 gm PO X1 ONE Stop: 06/19/24 07:39 Last Admin: 06/19/24 08:08 Dose: 30 gm Assessment & Plan Plan Plan: 74-year-old female with a previous medical history of end-stage renal disease on hemodialysis (), hypothyroidism, hypertension, insulin-dependent type 2 diabetes presenting to the ED with shortness of breath will be admitted for hypertensive urgency and acute hypoxic respiratory failure secondary to missed dialysis sessions; moreover, nephrology has been consulted to complete dialysis session. #Acute hypoxic respiratory failure #ESRD on HD () #Hyperkalemia Per HPI, patient missed dialysis session on Sunday 06/18 symptomatic shortness of breath Patient also has a AV fistula which is patent and she has received dialysis on Friday 06/16 For dialysis session usually TTS; however, due to recent AV fistula repair she received dialysis on 06/16 as above. In the ED, patient presented hypertensive with signs of acute hypoxic respiratory failure requiring supplemental oxygenation Potassium of 6.4 which responded well to calcium and IV insulin with dextrose: Downtrending to 5.5 Urinalysis shows proteinuria and glucosuria but no signs of infection. EKG shows sinus rhythm with first-degree AV block Chest x-ray shows mild to moderate congestive heart failure with prominent vascular congestion, perihilar basilar edema with moderate bilateral pleural effusions. Plan: -Patient will receive hemodialysis today via AV fistula -Monitor CBC/CMP in a.m. -Wean off supplemental oxygen, goal SpO2 92 #Hypertensive Urgency, resolved #Hypertension #Anemia of Chronic Disease #Insulin dependent-Type 2 DM #Hypothyroidism - Management as per primary team Case discussed with Attending Dr. Herring. Chet Cates PGY1 Disclaimer: This note was dictated by speech recognition. Minor errors in video production intern may be present due to voice recognition software. Attending Provider Attestation/Addendum Pt is seen and examined. Labs and investigations are reviewed. Agree witth assessment and plan by resident. agree with findings. Bill Herring MD
[2024-06-19] MEDS: amLODIPine BESYLATE 5 MG TABLET PO (09:47)
--- NOTE | 2024-06-19 10:08 | PD.RESHP ---
Documentation for date of: 06/19/24 HPI History of Present Illness Chief complaint: Shortness of breath, weakness History of present illness: 74-year-old female with a previous medical history of end-stage renal disease on hemodialysis (), hypothyroidism, hypertension, insulin-dependent type 2 diabetes presenting to the ED on 06/19 after she had AV fistula repair sometime on Sunday (06/16/2024) and dialysis during that day. Patient unfortunately did not get dialysis on Sunday 06/18 and as a result this morning started feeling short of breath and weak. Patient's daughter Diana is bedside and provided some history. Per patient's daughter who lives with her, patient has dialysis secondary to ESRD from longstanding hypertension and insulin-dependent type 2 diabetes. Medical history: As stated above Surgical history: Lumpectomy, AV fistula placement, Allergies: Morphine causes cramping Medications: Pending official med rec Family history: Extensive history of hypertension and type 2 diabetes Social history: Patient denies any alcohol, tobacco or illicit drug use. Lives with and daughter at home. Does not work currently. ROS: All 12 systems assessed and the patient denies unless otherwise stated in HPI In the ED, patient presented in hypertensive urgency with blood pressure 197/84, heart rate 94, respiratory 25, afebrile satting 100 on 6 L nasal cannula. Pertinent lab findings included fingerstick blood glucose of 235, WBC of 9.6, hemoglobin 8.8 with MCV of 92, sodium 131, potassium 6.4, BUN 67, creatinine 6.8, EGFR 6, magnesium 2.6, T. bili 0.2, AST 56, ALT 43, alk phosphatase 237, troponin 0.020, BNP 980. Urinalysis shows proteinuria and glucosuria but no signs of infection. EKG shows sinus rhythm with first-degree AV block and chest x-ray shows mild to moderate congestive heart failure with prominent vascular congestion, perihilar basilar edema with moderate bilateral pleural effusions. Patient will be admitted for hypertensive urgency and acute hypoxic respiratory failure secondary to missed dialysis sessions; moreover, nephrology has been consulted to complete dialysis session. Exam Vital Signs Temp Pulse Resp BP Pulse Ox O2 Del Method O2 Flow Rate 98.7 F 110 H 20 217/80 H 100 Nasal Cannula 2 06/19/24 08:28 06/19/24 09:47 06/19/24 08:28 06/19/24 09:47 06/19/24 08:28 06/19/24 06:35 06/19/24 08:03 Narrative Exam Physical Exam: GENERAL: Awake, answering questions appropriately in Russian, appears stated age HEENT: NC/AT. Moist mucosa. PERRLA/EOMI. CARDIO: Heart RRR, no obvious murmurs, no JVD. PULM: No coughing or visible SOB but is on 2L of supplemental oxygen. Lungs CTA B/L. GI: Abdomen soft, NT/ND, +BS. SKIN/MSK/EXT: No wounds/discoloration/rashes/edema/amputations. +Pedal pulses present B/L. NEURO: Oriented x3, Moves extremities x4, no focal neurological deficits noted. Results: Labs 06/19/24 07:00 06/19/24 10:01 Labs: Short CBC 06/19/24 Range/Units 07:00 WBC 9.6 (3.6-11.0) Thou/mm3 Hgb 8.8 L (12.0-16.0) g/dL Hct 26.1 L (36.0-46.0) % Plt Count 249 (140-440) Thou/mm3 BMP 06/19/24 07:00 Sodium 131 L Potassium 6.4 H* Chloride 96 L Carbon Dioxide 24.4 BUN 67 H Creatinine 6.8 H* Glucose 329 H Calcium 8.6 Cardiac Enzymes 06/19/24 Range/Units 07:00 Troponin I 0.020 (0.0-0.045) ng/mL Liver Function 06/19/24 Range/Units 07:00 Total Bilirubin 0.2 L (0.3-1.2) mg/dL AST 36 H (0-34) U/L ALT 43 (10-49) U/L Alkaline Phosphatase 237 H (46-116) U/L Albumin 3.8 (3.4-4.8) gm/dL Urine 06/19/24 Range/Units 08:20 Urine Color Colorless A (Lt Yel-Yel) Urine Clarity Clear (Clear/Hazy) Urine pH 8.5 H (5.0-7.0) Ur Specific [place] 1.010 (1.001-1.035) Urine Protein 2+ A (Neg - Trace) Urine Glucose (UA) 3+ A (Negative) Quality Measures Quality Measures none Advance care planning discussed with:: patient and child Medications Home Medications and Allergies Home Medications ?Medication ?Instructions ?Recorded ?Confirmed ?Type atorvastatin 40 mg tablet 20 mg PO HS 08/20/20 01/29/24 History hydralazine 50 mg tablet 50 mg PO TID 08/20/20 01/29/24 History insulin glargine 100 unit/mL 20 unit subcut BID 08/20/20 01/29/24 History subcutaneous solution (Lantus U-100 Insulin) metoprolol tartrate 50 mg tablet 50 mg PO BID 08/20/20 01/30/24 History semaglutide 1 mg/dose (2 mg/1.5 2 mg subcut QWEEK 08/20/20 01/29/24 History mL) subcutaneous pen injector (Ozempic) vitamin B complex-vitamin C-folic 1 tab PO QDAY 08/20/20 01/29/24 History acid 800 mcg chewable tablet (Dialyvite 800) escitalopram oxalate 20 mg tablet 20 mg PO HS 05/16/22 01/29/24 History glimepiride 2 mg tablet 2 mg PO BID 05/16/22 01/29/24 History levothyroxine 100 mcg tablet 100 mcg PO DAILY 05/16/22 01/29/24 History sevelamer carbonate 800 mg tablet 800 mg PO QDAY 01/29/24 01/29/24 History Allergies Allergy/AdvReac Type Severity Reaction Status Date / Time morphine AdvReac Intermediate Cramping Verified 06/19/24 07:41 of the Muscles Visit Medications Acetaminophen (Acetaminophen 325 Mg Tablet) 650 mg PO Q6H PRN PRN Reason: Pain 1-3 and/or Fever >100.1 Stop: 07/19/24 09:53 Ondansetron HCl (Ondansetron Inj 2 Mg/Ml Inj 2 Ml) 4 mg IV Q6H PRN; Protocol PRN Reason: NAUSEA OR VOMITING Stop: 07/19/24 09:53 Sennosides (Senna Tablet) 1 tab PO QDAY PRN; Protocol PRN Reason: constipation Stop: 07/19/24 09:53 Discontinued Medications Albuterol (Albuterol Rt 2.5 Mg/3 Ml Nebu) 10 mg INH X1 ONE Stop: 06/19/24 07:39 Last Admin: 06/19/24 08:02 Dose: 10 mg Amlodipine Besylate (Amlodipine Besylate 5 Mg Tablet) 5 mg PO X1 ONE Stop: 06/19/24 09:40 Last Admin: 06/19/24 09:47 Dose: 5 mg Calcium Gluconate (Calcium Gluconate 10% Inj 1 Gm/10 Ml Vial) 1 gm IV X1 ONE Stop: 06/19/24 07:39 Last Admin: 06/19/24 08:04 Dose: 1 gm Dextrose (Dextrose 50%-Water Inj 50 Ml Syringe) 50 ml IV X1 ONE Stop: 06/19/24 07:46 Last Admin: 06/19/24 08:17 Dose: Not Given Hydromorphone HCl (Hydromorphone Inj 2 Mg/Ml Vial) 0.5 mg IVP X1 ONE Stop: 06/19/24 07:14 Last Admin: 06/19/24 08:03 Dose: 0.5 mg Insulin Human Regular (Insulin Hum Regular 1 Unit/0.01 Ml (Per Unit)) 5 unit IV X1 ONE Stop: 06/19/24 07:39 Last Admin: 06/19/24 08:04 Dose: 5 unit Sodium Polystyrene Sulfonate (Sod Polystyrene Sulfon Susp 15 Gm/60 Ml Btl) 30 gm PO X1 ONE Stop: 06/19/24 07:39 Last Admin: 06/19/24 08:08 Dose: 30 gm Assessment & Plan Plan 74-year-old female with a previous medical history of end-stage renal disease on hemodialysis (), hypothyroidism, hypertension, insulin-dependent type 2 diabetes presenting to the ED with shortness of breath will be admitted for hypertensive urgency and acute hypoxic respiratory failure secondary to missed dialysis sessions; moreover, nephrology has been consulted to complete dialysis session. #Acute hypoxic respiratory failure #ESRD on HD () #Hyperkalemia Per HPI, patient missed dialysis session on Sunday 06/18 symptomatic shortness of breath Patient also has a AV fistula which is patent and she has received dialysis on Friday 06/16 For dialysis session usually TTS; however, due to recent AV fistula repair she received dialysis on 06/16 as above. In the ED, patient presented hypertensive with signs of acute hypoxic respiratory failure requiring supplemental oxygenation Potassium of 6.4 which responded well to calcium and IV insulin with dextrose: Downtrending to 5.5 Urinalysis shows proteinuria and glucosuria but no signs of infection. EKG shows sinus rhythm with first-degree AV block Chest x-ray shows mild to moderate congestive heart failure with prominent vascular congestion, perihilar basilar edema with moderate bilateral pleural effusions. Plan: Nephrology consulted, appreciate recommendations Hemodialysis to be completed, ultrafiltration Monitor with morning labs #Hypertensive Urgency, resolved #Hypertension Troponin 0.020, BNP 980 Pending home medication reconciliation Plan: Restart home medications when appropriate #Anemia of Chronic Disease Secondary to ESRD status Plan: Consider EPO outpatient with nephrology #Insulin dependent-Type 2 DM Last A1c on January 2024 was 7.7, pending recent A1c Patient on home glimepiride 2 mg p.o. twice daily, Ozempic 2 mg subcu weekly, insulin glargine 20 units subcu twice daily Plan: Insulin glargine 10 unit at bedtime Sliding scale insulin Carb consistent diet #Hypothyroidism Patient on home levothyroxine 100 mcg Plan: Restart home meds Hospital Management: Lines: PIV Diet: Renal Bowel: Senna, Miralax GI prophylaxis: not needed DVT prophylaxis: SCD Dispo: Pending dialysis, will monitor renal panel and anticipate d/c within 24 hours Code: Full Patient seen and assessed with attending Dr. Fuentes and senior resident Dr. Tresa Mosqueda, PGY-1 Patient examined and case discussed with the team including attending physician Dr Fuentes Note reviewed, I agree with the care plan as documented. Patient is a 74 year old female with end-stage renal disease who presented with complains of shortness of breath. She is on HD for ESRD T//. She recently had an AV fistula repair on 06/16/2024 therefore could not get HD on 06/18/2024. Labs also showed Hyperkalemia 6.4 -> 5.5 . Patient is admitted for HD, Nephrology Dr Herring is consulted, appreciate recommendations. Please refer to the note above for further details. - Jer Gtz MD, PGY 2 Disclaimer: The document may contain phonetic/typographic errors due to voice recognition software. These errors are purely due to imperfections in the software program and should not be misconstrued in any way to compromise the substance of the patient's medical care during this visit.
[2024-06-19 10:43] LABS: Potassium 5.5 mMol/L (3.4-5.1)
[2024-06-19 12:19] LABS: B-Type Natriuretic Peptide 980 pg/mL (0-100)
[2024-06-19] MEDS: ACETAMINOPHEN 325 MG TABLET 650 MG PO ×2 (14:40→23:14)
[2024-06-19 15:36] LABS: Glucose Estimated Average 177 mg/dL (80-131); Hemoglobin A1C 7.8 % Hgb (4.8-6.0)
[2024-06-19] MEDS: SENNA TABLET 1 TAB PO (18:17)
[2024-06-19] MEDS: POLYETHYLENE GLYCOL 17 GM PACKET PO (18:18)
[2024-06-19] MEDS: INSULIN LISPRO (AdmeLOG) 1 UNIT/0.01 ML UNIT SC (18:18)
--- NOTE | 2024-06-19 18:34 | PC.NURSE ---
pt is denying any pain at this time, lidocaine patch held
[2024-06-19] MEDS: INSULIN GLARGINE (Lantus) 5 UNIT/0.05 ML (PER 5 UNITS) 10 UNIT SC (20:55)
[2024-06-20] VITALS (20 sets, daily range): BP systolic 119–181; BP diastolic 41–96; PULSE 53–101; RESP 18; TEMP 36.2–36.9; O2SAT 93–100
[2024-06-20] MEDS: DiphenhydrAMINE 25 MG CAPSULE PO (02:19)
[2024-06-20] MEDS: MORPHINE SULF INJ 10 MG/ML VIAL 2 MG IVP (02:19)
[2024-06-20] MEDS: ACETAMINOPHEN 325 MG TABLET 650 MG PO (05:46)
[2024-06-20] MEDS: LEVOTHYROXINE SODIUM 100 MCG TABLET PO (05:46)
[2024-06-20 06:19] LABS: Basophils # (Auto) 0.1 Thou/mm3 (0.0-0.2); Basophils % (Auto) 1 % (0-2.5); Eosinophils # (Auto) 0.2 Thou/mm3 (0.0-0.5); Eosinophils % (Auto) 3 % (0-10); Hematocrit 26.2 % (36.0-46.0); Immature Granulocytes % (Auto) 1 % (0-0); Immature Granulocytes Auto 0.03 Thou/mm3 (0.00-0.00); Lymphocytes # (Auto) 1.9 Thou/mm3 (1.0-4.8); Lymphocytes % (Auto) 28 % (10-50); Mean Corpuscular HGB Conc 32.8 g/dl (31.0-37.0); Mean Corpuscular Hemoglobin 30.7 pg (25.0-35.0); Mean Corpuscular Volume 94 fL (80-100); Monocytes # (Auto) 0.6 Thou/mm3 (0.0-0.8); Monocytes % (Auto) 10 % (0-12); Neutrophils # (Auto) 3.8 Thou/mm3 (1.8-7.7); Neutrophils % (Auto) 57 % (37-80); Nucleated Red Blood Cell % 0 /100 WBC (0); Platelet Count 249 Thou/mm3 (140-440); White Blood Count 6.6 Thou/mm3 (3.6-11.0)
[2024-06-20 06:27] LABS: Hemoglobin 8.6 g/dL (12.0-16.0)
[2024-06-20 06:29] LABS: Alanine Aminotransferase 56 U/L (10-49); Albumin, Serum 3.7 gm/dL (3.4-4.8); Albumin/Globulin Ratio 1.2 (1.2-2.2); Alkaline Phosphatase 253 U/L (46-116); Anion Gap 9 (7-16); Aspartate Amino Transferase 98 U/L (0-34); BUN/Creatinine Ratio 7 Ratio (12-20); Bilirubin,Total 0.4 mg/dL (0.3-1.2); Blood Urea Nitrogen 35 mg/dL (9-23); Calcium 8.9 mg/dL (8.3-10.6); Calcium (Corrected) 9.1 mg/dL (8.5-10.1); Carbon Dioxide 30.4 mMol/L (20.0-31.0); Chloride 98 mMol/L (98-107); Estimated Creatinine Clearance 9.8 mL/min (>60); Glucose 126 mg/dL (74-106); Magnesium 2.4 mg/dL (1.6-2.6); Osmolality,Calculated 283 (275-295); Phosphorous 4.6 mg/dL (2.4-5.1); Potassium 4.9 mMol/L (3.4-5.1); Sodium 137 mMol/L (136-145); Total Protein 6.7 gm/dL (5.7-8.2); eGFR 9 See Note
--- NOTE | 2024-06-20 07:51 | PC.NURSE ---
BS 101, Pt eating breakfast.
--- NOTE | 2024-06-20 11:05 | PD.HHDS ---
Planned Discharge Date 06/20/24 DS: Providers Provider Date of admission: 06/19/24 10:08 Primary care physician: Physician No Primary/Family Admitting Provider: Benjamin Fuentes MD Attending Provider on Admission: Rosaura Wade DO Consults: 06/19/24 07:01 Consult to Nephrology Stat Comment: SOB 2/2 missed HD Consulting Provider: Bill Herring Attending Provider on DC: Rosaura Wade DO Discharging Provider: Rosaura Wade DO Diagnosis Problem List Completed Was Problem List Reviewed/Reconciled?: Yes Hospital Course - Hospitalist Hospital Course Hospital course: Acute hypoxic respiratory failure Fluid overload ESRD on HD (TTS) Hyperkalemia Hypertensive urgency, resolved Anemia of Chronic disease Type 2 IDDM Hypothyroidism Patient is a 74-year-old female with past medical history end-stage renal disease on HD (TTS), hypothyroidism, hypertension, type 2 IDDM who presented to the ED after she had missed her regualrly scheduled dialysis after having had her AV fistula repaierd on Sunday. Patient complained of worsening gneralized weakness and shortness of breath and subsequently brought to ED. In the ED, patient presented in hypertensive urgency with blood pressure 197/84, heart rate 94, respiratory 25, afebrile satting 100 on 6 L nasal cannula. Pertinent lab findings included fingerstick blood glucose of 235, WBC of 9.6, hemoglobin 8.8 with MCV of 92, sodium 131, potassium 6.4, BUN 67, creatinine 6.8, EGFR 6, magnesium 2.6, T. bili 0.2, AST 56, ALT 43, alk phosphatase 237, troponin 0.020, BNP 980. Urinalysis shows proteinuria and glucosuria but no signs of infection. EKG shows sinus rhythm with first-degree AV block and chest x-ray shows mild to moderate congestive heart failure with prominent vascular congestion, perihilar basilar edema with moderate bilateral pleural effusions. Nephrology was consulted and received emergent dialysis. Potassium improved with IV insulin. Patient was seen and evaluated this AM during an extra session of dialysis. Patient reported significant improvement of shortness of breath and now on room air. Patient is stable for discharge home and to resume her regular dialysis schedule tomorrow. Patient also cleared for dsicharge home by nephrology. Time Spent with Patient Time attestation: Total time spent providing and/or coordinating discharge services: 35min Time spent: Greater than 30 minutes Discharge Results Labs Diagrams: 06/20/24 05:22 06/20/24 05:22 Labs: Short CBC 06/20/24 Range/Units 05:22 WBC 6.6 (3.6-11.0) Thou/mm3 Hgb 8.6 L (12.0-16.0) g/dL Hct 26.2 L (36.0-46.0) % Plt Count 249 (140-440) Thou/mm3 BMP 06/20/24 05:22 Sodium 137 Potassium 4.9 D Chloride 98 Carbon Dioxide 30.4 BUN 35 H Creatinine 5.0 H* D Glucose 126 H D Calcium 8.9 Liver Function 06/20/24 Range/Units 05:22 Total Bilirubin 0.4 (0.3-1.2) mg/dL AST 98 H (0-34) U/L ALT 56 H (10-49) U/L Alkaline Phosphatase 253 H (46-116) U/L Albumin 3.7 (3.4-4.8) gm/dL Pending Results Pending results: 06/19/24 17:10 Nose MRSA Screen - Pending Exam Vital Signs Temp Pulse Resp BP Pulse Ox O2 Del Method O2 Flow Rate 98.4 F 93 18 163/60 H 93 L Nasal Cannula 1 06/20/24 10:54 06/20/24 10:54 06/20/24 10:54 06/20/24 10:54 06/20/24 10:54 06/20/24 07:13 06/20/24 07:13 Narrative Gen: No acute distress HEENT: NCAT, PERRLOU, Sclera anicteric, conjunctiva noninjected, oral mucosa moist without erythema Neck: Supple, full range of motion, no LAD CV: RRR, no murmurs, rubs or gallops Resp: CTAB/L, no wheezing, rhonchi or rales GI: abdomen soft, bowel sounds noted, no tenderness to palpation, no guarding or rebound tenderness, no organomegaly Skin: clean, dry, no rashes, lesions or ecchymosis Ext: no clubbing, cyanosis, or edema Neuro: A&O x3, CN II- XII intact b/l, no focal neurological deficits Discharge Plan Plan Patient Disposition: HOME (Self Care) Patient condition on transfer: Stable Prescriptions/Referrals Prescriptions/Med Rec: Continued atorvastatin 40 mg Tablet 20 mg PO HS metoprolol tartrate 50 mg Tablet 50 mg PO BID hydralazine 50 mg Tablet 50 mg PO TID Dialyvite 800 800 mcg Tablet,Chewable 1 tab PO QDAY insulin glargine [Lantus U-100 Insulin] 100 unit/mL Solution 20 unit SUBCUT BID Ozempic 1 mg/dose (2 mg/1.5 mL) Pen Injector 2 mg SUBCUT QWEEK escitalopram oxalate 20 mg Tablet 20 mg PO HS levothyroxine 100 mcg Tablet 100 mcg PO DAILY sevelamer carbonate 800 mg Tablet 800 mg PO QDAY Rx Instructions: must administer with a meal/food valsartan 320 mg tablet 320 mg PO QDAY Qty: 30 0RF Discontinued glimepiride 2 mg Tablet 2 mg PO BID Referrals: Roderick Glez MD [Physician] - (Patient's Primary Dr.) Patient/Caregiver Discharge Instructions Other Discharge Activity Instructions:: Please follow up with PCP within 1 week of discharge Resume outpatient HD schedule Glimepiride has been discontinued, switched to januvia Education Materials: Shortness of Breath Coping, ED Shortness of Breath (Dyspnea) Print Language: Sinhala Stand Alone Forms: Judith Award Info., Patient Portal Info Letter, Work/Release Restrictions Discharge Order Discharge Orders: Discharge (Routine); Ordered 06/20/24 Ordered By: Rosaura Wade Quality Discharge Quality Measures VTE prophylaxis
[2024-06-20] MEDS: INSULIN LISPRO (AdmeLOG) 1 UNIT/0.01 ML UNIT SC (12:03)
== END 2024-06-20 13:47 | disposition home or self-care (01) ==
LOC: SERX 07:57 → SERHOLD 10:11 → S3SX 15:37
PROVIDERS: Admitting Provider Internal Medicine; Emergency Provider Student in an Organized Health Care Education/Training Program; Visit Provider Internal Medicine
DX: J96.21 Acute and chronic respiratory failure with hypoxia (principal); N18.6 End stage renal disease; Z79.4 Long term (current) use of insulin; I50.9 Heart failure, unspecified; I44.0 Atrioventricular block, first degree; I16.0 Hypertensive urgency; I13.2 Hypertensive heart and chronic kidney disease with heart failure and with stage 5 chronic kidney disease, or end stage renal disease; E87.5 Hyperkalemia; E11.22 Type 2 diabetes mellitus with diabetic chronic kidney disease; Z79.85 Long-term (current) use of injectable non-insulin antidiabetic drugs; E03.9 Hypothyroidism, unspecified; D63.1 Anemia in chronic kidney disease; Z91.158 Patient's noncompliance with renal dialysis for other reason; Z83.3 Family history of diabetes mellitus; Z82.49 Family history of ischemic heart disease and other diseases of the circulatory system; Z88.5 Allergy status to narcotic agent; Z99.2 Dependence on renal dialysis; Z79.890 Hormone replacement therapy; Z01.810 Encounter for preprocedural cardiovascular examination
CPT/HCPCS: 36415; 71045; 80053; 81001; 83036; 83735; 83880; 84100; 84132; 84484; 85025; 85610; 85730; 87040; 87081; 90935; 93005; 94640; 96374; 99285; G0378; J0612; J1171; J1815; J2270; A9270; G0257

== ENCOUNTER 2024-10-22 09:35 | Emergency (ER) | payer OTHER, SELFPAY ==
[2024-10-22 09:49] VITALS: BP 147/64; PULSE 72; RESP 19; TEMP 36.7; O2SAT 95
--- NOTE | 2024-10-22 10:02 | XR_ITS ---
Examination: Hand, right 3 views Technique: Hand AP, oblique, lateral 3 views Date and time of exam: October 22, 2024 1012 hours INDICATIONS: Right hand pain after falling 3 weeks ago FINDINGS: Severe osteopenia No acute fracture No dislocation IMPRESSION: No acute fracture
--- NOTE | 2024-10-22 10:02 | XR_ITS ---
Examination: Forearm, right, 2 views. Technique: Forearm, AP, lateral 2 views Date and time of exam: October 22, 2024 1012 hours INDICATIONS: Patient fell 3 weeks ago with injury to the forearm, forearm pain. FINDINGS: Severe osteopenia No acute fracture. No dislocation IMPRESSION: No acute fracture
--- NOTE | 2024-10-22 10:02 | XR_ITS ---
Examination: Wrist, right 3 views Technique: Wrist AP, oblique, lateral 3 views Date and time of exam: October 22, 2024 1012 hours INDICATIONS: Patient fell 3 weeks ago with injury to the wrist, wrist pain FINDINGS: Severe osteopenia. No acute fracture No dislocation IMPRESSION: No acute fracture
--- NOTE | 2024-10-22 11:33 | PD.EDHAND ---
Upper Extremity Injury RME/HPI General Chief Complaint: Hand/Wrist Problems Stated Complaint: R) WRIST/HAND PAIN FROM INJURY Time Seen by Provider: 10/22/24 10:02 Arrival date/time: 10/22/24 09:35 74-year-old female history of hypertension, hypothyroid, diabetes on dialysis presents with complaints of twisting her right arm approximately 3 weeks ago and reports since then she has been having pain in the right forearm with swelling to the right hand Limitations: no limitations Related Data Home Medications ?Medication ?Instructions ?Recorded ?Confirmed atorvastatin 40 mg tablet 20 mg PO HS 08/20/20 06/19/24 hydralazine 50 mg tablet 50 mg PO TID 08/20/20 06/19/24 insulin glargine 100 unit/mL 20 unit subcut BID 08/20/20 06/19/24 subcutaneous solution (Lantus U-100 Insulin) metoprolol tartrate 50 mg tablet 50 mg PO BID 08/20/20 06/19/24 semaglutide 1 mg/dose (2 mg/1.5 2 mg subcut QWEEK 08/20/20 06/19/24 mL) subcutaneous pen injector (Ozempic) vitamin B complex-vitamin C-folic 1 tab PO QDAY 08/20/20 06/19/24 acid 800 mcg chewable tablet (Dialyvite 800) escitalopram oxalate 20 mg tablet 20 mg PO HS 05/16/22 06/19/24 levothyroxine 100 mcg tablet 100 mcg PO DAILY 05/16/22 06/19/24 sevelamer carbonate 800 mg tablet 800 mg PO QDAY 01/29/24 06/19/24 Previous Rx's ?Medication ?Instructions ?Recorded valsartan 320 mg tablet 320 mg PO QDAY #30 tabs 01/30/24 Allergies Allergy/AdvReac Type Severity Reaction Status Date / Time morphine AdvReac Intermediate Cramping Verified 10/22/24 09:41 of the Muscles Review of Systems Review of Systems Systems Reviewed: All systems reviewed, normal except as documented Constitutional Constitutional: Reports system reviewed and no additional complaints, except as documented, Denies fever(s) and Denies headache(s) Eyes Eyes: Reports system reviewed and no additional complaints, except as documented and Denies blurry vision ENT Ears, Nose, Mouth, and Throat: Reports system reviewed and no additional complaints, except as documented, Denies headache(s), Denies nasal congestion and Denies nasal discharge Cardiovascular Cardiovascular: Reports system reviewed and no additional complaints, except as documented, Denies chest pain and Denies dyspnea Respiratory Respiratory: Reports system reviewed and no additional complaints, except as documented, Denies chest congestion, Denies cough and Denies dyspnea Gastrointestinal Gastrointestinal: Reports system reviewed and no additional complaints, except as documented and Denies abdominal pain Musculoskeletal Musculoskeletal: Reports system reviewed and no additional complaints, except as documented, Reports arthralgias, Denies deformity, Denies numbness, Denies stiffness and Denies tingling Integumentary/Breasts Skin/Breast: Reports system reviewed and no additional complaints, except as documented and Denies rash Neurologic Neurologic: Reports system reviewed and no additional complaints, except as documented, Reports as per HPI, Denies headache(s), Denies numbness and Denies tingling Past Medical History Past Medical History NEUROLOGIC: Positive Neurological Disorders and Peripheral Neuropathy CARDIAC: Positive Cardiac Disorders, Cardiac Arrhythmia, Heart Murmur, Atherosclerotic Heart Disease, Hypercholesterolemia, Edema, Deep Vein Thrombosis and Hypertension; Negative Congestive Heart Failure RESPIRATORY: Positive Bronchitis; Negative Chronic Obstructive Pulmonary Disease (COPD) GASTROINTESTINAL: Positive Gastrointestinal Disorders, Gastroesophageal Reflux Disease and Obesity GENITOURINARY: Positive Genitourinary Disorders, Renal Disease and Dialysis REPRODUCTIVE: Positive Breast Cancer and Previous Pregnancies MUSCULOSKELETAL: Positive Musculoskeletal Disorders, Arthritis, Osteoporosis and Fractures ENDOCRINE: Positive Endocrine Disorders, Diabetes Mellitus Type 2, Hyperthyroidism and Hypothyroidism; Negative Diabetes Mellitus Type 1 HEMATOLOGIC: Positive Anemia; Negative Blood Disorders PSYCHO/SOCIAL: Positive Depression and Anxiety OTHER HISTORY: Positive Blood Transfusions, Cancer and Breast Cancer; Negative Hospitalization, Blood Transfusion Reaction, Anesthesia Reactions, Chemotherapy or Radiation Therapy Family History FAMILY HISTORY: Negative Family Cardiac Disorders Surgical History SURGICAL: Positive Abdominal Surgery, Lumpectomy and Section; Negative Joint Replacement Social History SMOKING STATUS: Never smoker SUBSTANCE USE: does not use ED Exam General Limitations: Present no limitations General appearance: Present alert and in no apparent distress Head Head exam: Present atraumatic, normocephalic and normal inspection Eye Eye exam: Present normal appearance, PERRL and EOMI; Absent conjunctival injection ENT ENT exam: Present normal exam, normal oropharynx and mucous membranes moist Neck Neck exam: Present normal inspection, full ROM and trachea midline Chest Chest inspection: Present normal inspection and symmetric chest wall rise Respiratory Respiratory exam: Present normal lung sounds bilaterally Cardiovascular Cardiovascular exam: Present regular rate, normal rhythm and normal heart sounds Abdominal Exam Abdominal exam: Present soft and normal bowel sounds Extremities Exam Extremities exam: Present normal inspection, full ROM, tenderness, normal capillary refill and joint swelling Back Exam Back exam: Present normal inspection and full ROM Neurological Exam Neurological exam: Present alert, oriented X3 and CN II-XII intact Psychiatric Psychiatric exam: Present normal affect and normal mood Skin Skin exam: Present warm, dry, intact and normal color Course Quality Measures none Orders Category Date Time Status US venous doppler UE RT Stat Exams 10/22/24 11:34 Completed XR forearm RT 2V Stat Exams 10/22/24 10:02 Completed XR hand comp RT min 3V Stat Exams 10/22/24 10:02 Completed XR wrist comp RT min 3V Stat Exams 10/22/24 10:02 Completed Vital Signs Vital signs: Vital Signs Temperature 98.0 F 10/22/24 09:49 Pulse Rate 72 10/22/24 09:49 Respiratory Rate 19 10/22/24 09:49 Blood Pressure 147/64 H 10/22/24 09:49 Pulse Oximetry (%) 95 10/22/24 09:49 o2 sat 95% r.a wnl Extremity Injury MDM Narrative MDM Narrative:: 74-year-old female history of hypertension, hypothyroid, diabetes on dialysis presents with complaints of twisting her right arm approximately 3 weeks ago and reports since then she has been having pain in the right forearm with swelling to the right hand On exam patient is mild swelling of the right hand there is no bruising no erythema. X-ray of the right hand forearm and wrist obtained no acute fractures noted Ultrasound obtained no acute DVT noted Symptoms consistent with sprain, contusion Patient discharged home in no distress to follow-up with primary care doctor in the next 24 to 48 hours and for any worsening symptoms to return to the ER immediately Patient data External records reviewed:: [facility] previous records Clinical information provided by:: patient Social determinants that could affect healthcare access:: none Patient has the following chronic illnesses:: none How is presenting disease/condition affected by chronic disease/condition?: no chronic disease Evaluation data The following diagnostics were reviewed and interpreted by me:: radiology exam(s) Lab and/or radiology exams considered but not ordered:: ordered Interpretation Summary: reviewed by me Medications / Prescriptions Medications or Prescriptions considered but not ordered:: given Medication administrations:: given Consultations Consultation(s) initiated? (list below): No Diagnosis Upper Extremity Injury Differential Diagnosis: fracture of wrist and fracture of hand Most likely diagnosis given after review of the tests above:: pain swelling Admission Indicated Admission indicated?: not indicated Admission Request Was there a request for admission?: No Disposition Plan Disposition Plan: Discharge Discharge Attestation Discharge Attestation: The patient and all family members were given an opportunity to ask questions and understood the discharge instructions. Discharge instructions specifically effects, indications for sooner follow up or return to the emergency department, and the expected course of current diagnosis. Patient condition: Stable Discharge Plan Plan Patient Disposition: HOME (Self Care) Discharge Disposition comment: Stable Prescriptions/Referrals Prescriptions/Med Rec: No Action atorvastatin 40 mg Tablet 20 mg PO HS metoprolol tartrate 50 mg Tablet 50 mg PO BID hydralazine 50 mg Tablet 50 mg PO TID Dialyvite 800 800 mcg Tablet,Chewable 1 tab PO QDAY insulin glargine [Lantus U-100 Insulin] 100 unit/mL Solution 20 unit SUBCUT BID Ozempic 1 mg/dose (2 mg/1.5 mL) Pen Injector 2 mg SUBCUT QWEEK escitalopram oxalate 20 mg Tablet 20 mg PO HS levothyroxine 100 mcg Tablet 100 mcg PO DAILY sevelamer carbonate 800 mg Tablet 800 mg PO QDAY Rx Instructions: must administer with a meal/food valsartan 320 mg tablet 320 mg PO QDAY Qty: 30 0RF Referrals: Roderick Glez MD [Primary Care Provider, Nephrology] - In 1 week Problem List Clinical Impression: Injury of right forearm Patient/Caregiver Discharge Instructions Education Materials: ED Muscle Strain, Extremity Additional Instructions: Please follow up with your primary care doctor in the next 24-48hrs for any worsening symptoms return here immediately Print Language: Comoran Stand Alone Forms: Judith Award Info., Patient Portal Info Letter PA/FISH HOUSEKEEPER Supervising Physician PA/FISH HOUSEKEEPER Supervising Physician: Dr. lainez
--- NOTE | 2024-10-22 11:34 | XR_ITS ---
Examination: Duplex scan of the upper extremity, unilateral right Date and time of exam: October 22, 2024 1151 hours INDICATIONS: Right arm swelling and pain beginning 3 weeks ago Technique: Duplex scan of the extremity veins using B-mode/grayscale imaging and Doppler spectral analysis and color flow Attention is directed to internal echogenicity, compression and augmentation involving these veins, color flow assessment, spectral analysis Findings: Major deep venous structures in the extremity demonstrate normal course and caliber. There is no evidence of deep vein thrombosis. Normal color flow and spectral analysis Impression: Negative for DVT..
== END 2024-10-22 13:28 | disposition home or self-care (01) ==
PROVIDERS: Emergency Provider Nurse Practitioner Primary Care; PCP Internal Medicine
DX: S59.911A Unspecified injury of right forearm, initial encounter (principal); S69.91XA Unspecified injury of right wrist, hand and finger(s), initial encounter; X50.1XXA Overexertion from prolonged static or awkward postures, initial encounter
CPT/HCPCS: 73090; 73110; 73130; 93971; 99284

== ENCOUNTER → 2024-12-05 | Outpatient (CLI) | payer MEDICARE, MEDICAID, SELFPAY ==
[2024-12-05 11:08] LABS: Glucose,Fasting 172 mg/dL (74-106)
== END | disposition home or self-care (01) ==
LOC: COPL 09:33
PROVIDERS: PCP Internal Medicine; Referring Provider Ophthalmology; Visit Provider Ophthalmology
DX: Z01.818 Encounter for other preprocedural examination (principal)
CPT/HCPCS: 36415; 82947

== ENCOUNTER 2024-12-29 08:50 | Emergency (ER) | payer MEDICARE, MEDICAID, SELFPAY ==
[2024-12-29] VITALS (26 sets, daily range): BP systolic 148–260; BP diastolic 50–134; PULSE 62–109; RESP 17–84; TEMP 36.2–36.8; O2SAT 84–99; BMI 35.7
--- NOTE | 2024-12-29 08:51 | EKG_ITS ---
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
--- NOTE | 2024-12-29 08:59 | PD.EDSOB ---
ED SOB =RME/HPI General Chief Complaint: Shortness of Breath/Dyspnea Stated Complaint: SOB Time Seen by Provider: 12/29/24 09:00 Arrival date/time: 12/29/24 08:50 RME / HPI RME / HPI Narrative: See [facility] for Dr. Gee's HPI documentation. Related Data Home Medications ?Medication ?Instructions ?Recorded ?Confirmed atorvastatin 40 mg tablet 20 mg PO HS 08/20/20 06/19/24 hydralazine 50 mg tablet 50 mg PO TID 08/20/20 06/19/24 insulin glargine 100 unit/mL 20 unit subcut BID 08/20/20 06/19/24 subcutaneous solution (Lantus U-100 Insulin) metoprolol tartrate 50 mg tablet 50 mg PO BID 08/20/20 06/19/24 semaglutide 1 mg/dose (2 mg/1.5 2 mg subcut QWEEK 08/20/20 06/19/24 mL) subcutaneous pen injector (Ozempic) vitamin B complex-vitamin C-folic 1 tab PO QDAY 08/20/20 06/19/24 acid 800 mcg chewable tablet (Dialyvite 800) escitalopram oxalate 20 mg tablet 20 mg PO HS 05/16/22 06/19/24 levothyroxine 100 mcg tablet 100 mcg PO DAILY 05/16/22 06/19/24 sevelamer carbonate 800 mg tablet 800 mg PO QDAY 01/29/24 06/19/24 Previous Rx's ?Medication ?Instructions ?Recorded valsartan 320 mg tablet 320 mg PO QDAY #30 tabs 01/30/24 acetaminophen 300 mg-codeine 30 mg 2 tab PO Q8H PRN pain #20 tabs 12/29/24 tablet clonidine HCl 0.1 mg tablet 0.1 mg PO BID #60 tabs 12/29/24 ondansetron 4 mg disintegrating 4 mg PO TID PRN nausea and 12/29/24 tablet vomiting 30 days #10 tabs Allergies Allergy/AdvReac Type Severity Reaction Status Date / Time morphine AdvReac Intermediate Cramping Verified 12/29/24 09:02 of the Muscles Review of Systems Review of Systems Systems Reviewed: All systems reviewed, normal except as documented Past Medical History Past Medical History NEUROLOGIC: Positive Neurological Disorders and Peripheral Neuropathy CARDIAC: Positive Cardiac Disorders, Cardiac Arrhythmia, Heart Murmur, Atherosclerotic Heart Disease, Hypercholesterolemia, Edema, Deep Vein Thrombosis and Hypertension RESPIRATORY: Positive Bronchitis GASTROINTESTINAL: Positive Gastrointestinal Disorders, Gastroesophageal Reflux Disease and Obesity GENITOURINARY: Positive Genitourinary Disorders, Renal Disease and Dialysis REPRODUCTIVE: Positive Breast Cancer and Previous Pregnancies MUSCULOSKELETAL: Positive Musculoskeletal Disorders, Arthritis, Osteoporosis and Fractures ENDOCRINE: Positive Endocrine Disorders, Diabetes Mellitus Type 2, Hyperthyroidism and Hypothyroidism HEMATOLOGIC: Positive Anemia PSYCHO/SOCIAL: Positive Depression and Anxiety OTHER HISTORY: Positive Blood Transfusions, Cancer and Breast Cancer Surgical History SURGICAL: Positive Abdominal Surgery, Lumpectomy and Section Social History SMOKING STATUS: Never smoker SUBSTANCE USE: does not use ED Exam Narrative Physical exam: See [facility] for Dr. Gee's physical exam documentation. Course Quality Measures none Orders Category Date Time Status Bedside COVID-19 Antigen Test NOW Care 12/29/24 09:[address] Screening NOW Care 12/29/24 10:44 Active EKG (ED ONLY) *Do not use* NOW Care 12/29/24 08:51 Completed Hemodialysis Urgent Care 12/29/24 13:21 Active Saline [Insert IV] NOW Care 12/29/24 09:01 Active Straight [In and Out Catheter] X1 Care 12/29/24 09:[address] abdomen pelvis w con Stat Exams 12/29/24 10:[address] angio chest Stat Exams 12/29/24 10:[address] head/brain wo con Stat Exams 12/29/24 09:03 Completed EKG (ED Only) Stat Exams 12/29/24 08:51 Draft US gall bladder Stat Exams 12/29/24 12:55 Completed XR chest 1V portable Stat Exams 12/29/24 09:03 Completed ABG [Arterial Blood Gas] Stat Lab 12/29/24 09:25 Completed Amylase Stat Lab 12/29/24 10:04 Completed BNP [B-Type Natriuretic Peptide] Stat Lab 12/29/24 09:54 Completed Beta Hydroxybutyrate Stat Lab 12/29/24 10:04 Completed Bilirubin,Direct Stat Lab 12/29/24 10:04 Completed Blood Culture (Lab) Stat Lab 12/29/24 09:59 Received CBC Stat Lab 12/29/24 09:54 Completed CMP [Comprehensive Metabolic Panel] Stat Lab 12/29/24 10:04 Completed CRP [C-Reactive Protein] Stat Lab 12/29/24 10:04 Completed D-Dimer Stat Lab 12/29/24 09:54 Completed ESR [Sed Rate (ESR)] Stat Lab 12/29/24 09:54 Completed Free T3 Stat Lab 12/29/24 10:04 Completed Free T4 (Free Thyroxine) Stat Lab 12/29/24 10:04 Completed Hemoglobin A1C [Glycohemoglobin w (eAG)] Stat Lab 12/29/24 09:54 Completed Hepatitis Acute Panel Urgent Lab 12/29/24 10:04 Completed Hepatitis B Surface Ab Urgent Lab 12/29/24 10:04 Completed Influenza A & B Rapid Panel Stat Lab 12/29/24 10:55 Completed Lactate (Lactic Acid) Stat Lab 12/29/24 09:54 Completed Lactic Acid, 3 HR Stat Lab 12/29/24 13:34 Completed Lipase Stat Lab 12/29/24 10:04 Completed Magnesium Stat Lab 12/29/24 10:04 Completed Procalcitonin Stat Lab 12/29/24 10:04 Completed TSH [Thyroid Stimulating Hormone] Stat Lab 12/29/24 10:04 Completed Troponin I Stat Lab 12/29/24 10:04 Completed UA, C/S IF [Urinalysis, C/S if Indicated] Stat Lab 12/29/24 11:05 Completed Albumin Human-Kjda 25% Ivpb [Albuminex 25% Ivpb] Med 12/29/24 13:21 Active 25 gm in 100 ml IV PRN Furosemide Inj [Lasix Inj] Med 12/29/24 09:01 Discontinued 80 mg IVP X1 ONE HYDROmorphone INJ [Dilaudid Inj] Med 12/29/24 09:02 Discontinued 0.8 mg IVP X1 ONE HYDROmorphone INJ [Dilaudid Inj] Med 12/29/24 17:15 Discontinued 1 mg IVP X1 ONE Nitroglycerin Oint 2% [Nitro-paste Oint 2%] Med 12/29/24 09:01 Discontinued 2 inch TOP X1 ONE Ondansetron Inj [Zofran Inj] Med 12/29/24 17:15 Discontinued 4 mg IVP X1 ONE cloNIDine HCL [Catapres] Med 12/29/24 09:01 Discontinued 0.4 mg PO X1 ONE hydrALAZINE INJ [Apresoline Inj] Med 12/29/24 10:21 Discontinued 20 mg IVP X1 ONE Vital Signs Vital signs: Vital Signs Temperature 98.2 F 12/29/24 09:02 Pulse Rate 81 12/29/24 09:02 Respiratory Rate 21 H 12/29/24 09:02 Blood Pressure 203/70 H 12/29/24 09:02 Pulse Oximetry (%) 84 L 12/29/24 09:02 Oxygen Delivery Method Room Air 12/29/24 09:02 Shortness of Breath / Dyspnea MDM Narrative MDM Narrative:: This section includes all my notes and documentations, including HPI, PE, and ED course. Escobar Gee MD HPI: 74-year-old female here to be evaluated with shortness of breath and headache and chest pain and abdominal pain. Has trouble localizing her chest pain and abdominal pain. Has trouble describing the quality and quantity of her symptoms. Uncertain of excising transfers or relieving factors. No other complaints. ROS: All negative except as documented in HPI. Physical Exam: General:? Alert and oriented.? In respiratory distress. Severely high BP noted. Eyes:? Conjunctivae and lids clear.? EOMI.? PERRL. ENT:? No congestion. Neck:? Supple.? No carotid bruit. No JVD. Heart:? RRR. Lungs: In respiratory distress.? Decreased air movement with diffuse Rales. Chest:? No tenderness. Abdomen:? Soft with equivocal tenderness, difficult to localize.? Normal bowel sounds.? No distension.? No rebound or guarding.? Back:? No CVA tenderness.? Skin:? Warm and dry.? Neuro:? Alert and oriented X 3.? Cranial Nerves II-XII grossly intact.? No peripheral motor deficits. I reviewed EMS notes. I reviewed all diagnostic test results: My interpretation of the EKG is: Sinus rhythm (83 bpm) with right BBB and nonspecific ST-T changes. My interpretation of the chest x-ray is increased vascular congestion. My review of the CT head report is: No acute findings. My review of the CT abdomen/pelvis report is no acute findings. My review of the CTA chest report is no PE. My review of the US gallbaldder report is no acute findings. Blood tests and urine tests remarkable for WBC 11.5, D-Dimer 2,310, Cr 5.6, BNP 1,041, TSH 13.20 (normal free T3 and T4). Covid/Influenza are negative. At this point, diagnoses include: Hypertensive urgency ESRD Treatment here during the entire ED course included: Lasix 80 mg IV Topical 2 inch nitroglycerin With Dilaudid 0.8 mg IV Clonidine 0.4 mg PO Hydralazine 20 mg IV Dilaudid 1 mg IV Dialysis Significant improvement noted. Recommended outpatient care. Based on my best medical judgment, made decision no further evaluation or treatment indicated at this time. Patient understands and agrees to the discharge instructions customized and printed, see below. Discharge Instructions from Dr. Gee printed for you: 1. After extensive evaluation, there is no immediately life-threatening condition. Such as stroke or brain tumor or heart attack. 2. Tylenol with codeine for severe headache. Zofran for nausea/vomiting. 3. To lower your BP, take clonidine as needed on top of your current BP medications. Take Clonidine 0.1 mg pill(s) every 12 hours as needed based on SBP (higher number of BP). SBP > 140, take one pill. SBP > 160, take two pills. SBP > 180, take three pills. SBP > 200, take four pills. 4. See your private doctor on 12/31/2024 for recheck. Ask to review all test results and official radiology reports, to make sure you receive all necessary follow-ups and monitoring. 5. Seek immediate medical care with worsening or with any concerns. Patient data External records reviewed:: [facility] previous records and EMS form Clinical information provided by:: patient and EMS Social determinants that could affect healthcare access:: none Patient has the following chronic illnesses:: Hypertension, ESRD on HD T/Th/Sun, hypothyroidism, diabetes How is presenting disease/condition affected by chronic disease/condition?: exacerbated by Evaluation data The following diagnostics were reviewed and interpreted by me:: lab results, radiology exam(s) and EKG tracing(s) (My interpretation of the EKG is: Sinus rhythm (83 bpm) with right BBB and nonspecific ST-T changes. Escobar Gee MD) Lab and/or radiology exams considered but not ordered:: None Interpretation Summary: I reviewed all diagnostic test results: My interpretation of the EKG is: Sinus rhythm (83 bpm) with right BBB and nonspecific ST-T changes. My interpretation of the chest x-ray is increased vascular congestion. My review of the CT head report is: No acute findings. My review of the CT abdomen/pelvis report is no acute findings. My review of the CTA chest report is no PE. My review of the US gallbaldder report is no acute findings. Blood tests and urine tests remarkable for WBC 11.5, D-Dimer 2,310, Cr 5.6, BNP 1,041, TSH 13.20 (normal free T3 and T4). Covid/Influenza are negative. Medications / Prescriptions Medications or Prescriptions considered but not ordered:: None Medication administrations:: Medication Administration History Albumin Human (Albuminex 25% Ivpb) 25 gm in 100 mls @ 100 mls/hr IV PRN PRN PRN Reason: DIALYSIS Discontinued Medications Clonidine (Clonidine Hcl 0.1 Mg Tablet) 0.4 mg PO X1 ONE Stop: 12/29/24 09:02 Last Admin: 12/29/24 09:30 Dose: 0.4 mg Documented By: TM Furosemide (Furosemide Inj 10 Mg/Ml 4ml Vial) 80 mg IVP X1 ONE Stop: 12/29/24 09:02 Last Admin: 12/29/24 09:24 Dose: 80 mg Documented By: TM Hydralazine HCl (Hydralazine Inj 20 Mg/Ml Vial) 20 mg IVP X1 ONE Stop: 12/29/24 10:22 Last Admin: 12/29/24 10:45 Dose: 20 mg Documented By: TM Hydromorphone HCl (Hydromorphone Inj 2 Mg/Ml Vial) 0.8 mg IVP X1 ONE Stop: 12/29/24 09:03 Last Admin: 12/29/24 09:32 Dose: 0.8 mg Documented By: TM Hydromorphone HCl (Hydromorphone Inj 2 Mg/Ml Vial) 1 mg IVP X1 ONE Stop: 12/29/24 17:16 Nitroglycerin (Nitroglycerin Oint 2% 1 Inch Packet) 2 inch TOP X1 ONE Stop: 12/29/24 09:02 Last Admin: 12/29/24 09:29 Dose: 2 inch Documented By: TM Ondansetron HCl (Ondansetron Inj 2 Mg/Ml Inj 2 Ml) 4 mg IVP X1 ONE; Protocol Stop: 12/29/24 17:16 Treatment here during the entire ED course included: Lasix 80 mg IV Topical 2 inch nitroglycerin With Dilaudid 0.8 mg IV Clonidine 0.4 mg PO Hydralazine 20 mg IV Dilaudid 1 mg IV Dialysis Consultations Consultation(s) initiated? (list below): No Diagnosis Shortness of Breath Differential Diagnosis: acute exacerbation of chronic obstructive airways disease, congestive heart failure and community acquired pneumonia Most likely diagnosis given after review of the tests above:: Hypertensive urgency ESRD Admission Indicated Admission indicated?: not indicated Explain why admission is indicated or not indicated:: With significant improvement and no condition needing emergent intervention, there was no indication for admission. Admission Request Was there a request for admission?: No Disposition Plan Disposition Plan: Discharge Discharge Attestation Discharge Attestation: The patient and all family members were given an opportunity to ask questions and understood the discharge instructions. Discharge instructions specifically effects, indications for sooner follow up or return to the emergency department, and the expected course of current diagnosis. Patient condition: Stable Discharge Plan Plan Patient Disposition: HOME (Self Care) Prescriptions/Referrals Prescriptions/Med Rec: New clonidine HCl 0.1 mg tablet 0.1 mg PO BID Qty: 60 0RF acetaminophen-codeine 300-30 mg tablet 2 tab PO Q8H MDD 6 PRN (Reason: pain) Qty: 20 0RF ondansetron 4 mg tablet,disintegrating 4 mg PO TID PRN (Reason: nausea and vomiting) 30 Days Qty: 10 0RF No Action atorvastatin 40 mg Tablet 20 mg PO HS metoprolol tartrate 50 mg Tablet 50 mg PO BID hydralazine 50 mg Tablet 50 mg PO TID Dialyvite 800 800 mcg Tablet,Chewable 1 tab PO QDAY insulin glargine [Lantus U-100 Insulin] 100 unit/mL Solution 20 unit SUBCUT BID Ozempic 1 mg/dose (2 mg/1.5 mL) Pen Injector 2 mg SUBCUT QWEEK escitalopram oxalate 20 mg Tablet 20 mg PO HS levothyroxine 100 mcg Tablet 100 mcg PO DAILY sevelamer carbonate 800 mg Tablet 800 mg PO QDAY Rx Instructions: must administer with a meal/food valsartan 320 mg tablet 320 mg PO QDAY Qty: 30 0RF Referrals: Roderick Glez MD [Primary Care Provider, Nephrology] - In 1 week Problem List Clinical Impression: Hypertensive urgency, ESRD (end stage renal disease) Patient/Caregiver Discharge Instructions Discharge Activity: activity as tolerated Education Materials: ED Hypertension, Established Additional Instructions: Discharge Instructions from Dr. Gee printed for you: 1. After extensive evaluation, there is no immediately life-threatening condition. Such as stroke or brain tumor or heart attack. 2. Tylenol with codeine for severe headache. Zofran for nausea/vomiting. 3. To lower your BP, take clonidine as needed on top of your current BP medications. Take Clonidine 0.1 mg pill(s) every 12 hours as needed based on SBP (higher number of BP). SBP > 140, take one pill. SBP > 160, take two pills. SBP > 180, take three pills. SBP > 200, take four pills. 4. See your private doctor on 12/31/2024 for recheck. Ask to review all test results and official radiology reports, to make sure you receive all necessary follow-ups and monitoring. 5. Seek immediate medical care with worsening or with any concerns. Instrucciones de katherine del Dr. Gee (impresas para usted): 1. Tras beatris evaluaci?n exhaustiva, no se detecta ninguna afecci?n que ponga en peligro barry mingo de forma inmediata. Por ejemplo, un derrame cerebral, un tumor cerebral o un infarto. 2. Para el dolor de berry intenso, tome paracetamol con code?na. Para las n?useas y los v?mitos, tome ondansetr?n. 3. Para bajar la presi?n arterial, tome clonidina seg?n sea necesario, adem?s de barry medicaci?n actual para la presi?n arterial. [place] beatris o m?s pastillas de clonidina de 0,1 mg cada 12 horas, seg?n sea necesario, en funci?n de la presi?n arterial sist?lica (PAS). PAS > 140, tome beatris pastilla. PAS > 160, tome dos pastillas. PAS > 180, tome shasha pastillas. PAS > 200, tome cuatro pastillas. 4. Consulte a barry m?dico de cabecera el 31/12/2024 para beatris revisi?n. Solicite revisar todos los resultados de las pruebas y los informes radiol?gicos oficiales para asegurarse de recibir todos los seguimientos y controles necesarios. 5. Busque atenci?n m?dica inmediata si empeora o si tiene alguna inquietud. Print Language: Swedish Stand Alone Forms: Judith Award Info., Patient Portal Info Letter
--- NOTE | 2024-12-29 09:03 | XR_ITS ---
Examination: CT brain head without contrast. 2-D sagittal coronal reconstructions Date and time of exam: December 29 2024, 1123 hours INDICATIONS: High blood pressure today with headache COMPARISON: August 20, 2020 CTDI: vol (mGy): 53.6 DLP: (mGycm): 1089 Technique: Multiple CT axial sections of the brain have been obtained, 5 mm slice thickness. Contrast has not been administered. 2-D sagittal, coronal reconstructions have been obtained Low dose protocols were performed. One or more of the following dose reduction techniques were used; automated exposure control, adjustment of the mA and/or KV according to patient size, use of iterative reconstruction technique. Findings: No significant ventricular enlargement. Left temporal lobe subarachnoid cyst Intra-axial or extra-axial hemorrhage density is not seen. No mass effect or midline shift Basal cisterns are not remarkable. Fourth ventricle is midline. Cranial vault intact. Impression: No interval acute hemorrhage, mass effect or midline shift
--- NOTE | 2024-12-29 09:03 | XR_ITS ---
EXAMINATION: AP chest single view TECHNIQUE: AP portable sitting chest single view Date and time: December 29, 2024, 0908 hours, comparison June 19, 2024 INDICATIONS: Difficulty breathing today. FINDINGS: Mild to moderate CHF Mild enlargement cardiac contour, prominent vascular congestion and perihilar edema Consider superimposed bilateral pneumonia Left vascular stent Prominent osteopenia IMPRESSION: Mild to moderate CHF Consider superimposed bilateral pneumonia
[2024-12-29] MEDS: FUROSEMIDE INJ 10 MG/ML 4ML VIAL 80 MG IVP (09:24)
[2024-12-29] MEDS: NITROGLYCERIN OINT 2% 1 INCH PACKET 2 INCH TOP (09:29)
[2024-12-29 09:30] LABS: Base Excess 6 (-3-3); HCO3 31 mEq/L (20-26); Inspired O2, VO2 Liters 2 L/min; O2 Saturation 91 % (91-98); PCO2 46 mmHg (32.0-48.0); PO2 63 mmHg (83-108); pH, Arterial 7.44 (7.35-7.45)
[2024-12-29] MEDS: HYDROmorphone INJ 2 MG/ML VIAL 0.8 MG IVP (09:32)
[2024-12-29 09:35] LABS: Allen Test Performed/OK; Puncture Site Right Brachial
[2024-12-29 10:14] LABS: Beta Hydroxybutyrate 0.1 mmol/L (<0.6)
[2024-12-29 10:15] LABS: Lactate (Lactic Acid) 2.4 mMol/L (0.4-2.0)
[2024-12-29 10:16] LABS: Basophils # (Auto) 0.1 Thou/mm3 (0.0-0.2); Basophils % (Auto) 0 % (0-2.5); Eosinophils % (Auto) 2 % (0-10); Lymphocytes # (Auto) 1.5 Thou/mm3 (1.0-4.8); Lymphocytes % (Auto) 13 % (10-50); Monocytes # (Auto) 0.6 Thou/mm3 (0.0-0.8); Monocytes % (Auto) 5 % (0-12); Nucleated Red Blood Cell % 0 /100 WBC (0)
[2024-12-29 10:18] LABS: Eosinophils # (Auto) 0.3 Thou/mm3 (0.0-0.5); Hematocrit 36.1 % (36.0-46.0); Hemoglobin 11.6 g/dL (12.0-16.0); Immature Granulocytes Auto 0.04 Thou/mm3 (0.00-0.00); Mean Corpuscular HGB Conc 32.1 g/dl (31.0-37.0); Mean Corpuscular Hemoglobin 30.7 pg (25.0-35.0); Mean Corpuscular Volume 96 fL (80-100); Neutrophils # (Auto) 9.1 Thou/mm3 (1.8-7.7); Neutrophils % (Auto) 79 % (37-80); Nucleated Red Blood Cell # 0.02 Thou/mm3 (0.00-0.00); Platelet Count 251 Thou/mm3 (140-440); RDW Standard Deviation 56.7 fL (36.4-46.3); Red Blood Count 3.78 Miln/mm3 (4.00-5.20); White Blood Count 11.5 Thou/mm3 (3.6-11.0)
[2024-12-29 10:37] LABS: D-Dimer 2310 ng/mL (<600)
--- NOTE | 2024-12-29 10:44 | XR_ITS ---
Examination: CT abdomen with intravenous contrast CT pelvis with intravenous contrast 2-D coronal reconstructions 2-D sagittal reconstructions Date and time of exam: December 29, 2024, 1130 hours INDICATIONS: Generalized abdominal pain today. CTDI: vol (mGy) 22.8 DLP: (mGycm) 1286 Technique: Multiple axial sections of the abdomen and pelvis have been obtained. 64 slice high-resolution scanner used. 3 mm axial sections have been obtained, post intravenous injection 100 cc Isovue 370 2-D sagittal, coronal reconstructions obtained. Low dose protocols were performed. One or more of the following dose reduction techniques were used; automated exposure control, adjustment of the mA and/or KV according to patient size, use of iterative reconstruction technique. Findings: No focal liver or splenic lesions Hepatomegaly 22 cm Absent gallbladder Common bile duct is enlarged 14 mm no definite stones No pancreatic mass Pancreatic duct 2.5 mm Spleen is not enlarged Trace free fluid in the abdomen Atrophic kidneys with renal cortical thinning, no hydronephrosis No pericecal inflammatory change No bowel obstruction Colonic diverticulosis, no diverticulitis Atrophic anteverted uterus Bowel free fluid in the pelvis No adnexal mass Contracted urinary bladder Localized weakening of the anterior pelvic wall Severe osteopenia IMPRESSION: Hepatomegaly 22 cm Abnormal enlargement of the common bile duct 14 mm, recommend hepatobiliary sonography follow-up Trace ascites, clinical correlation advised Atrophic kidneys with renal cortical thinning, no hydronephrosis Colonic diverticulosis, no diverticulitis
--- NOTE | 2024-12-29 10:44 | XR_ITS ---
Examination: CTA chest with intravenous contrast 2-D reconstructions 3-D reconstructions, vascular Date and time of exam: December, 1134 hours INDICATIONS: Chest pain shortness of breath today CTDI: vol (mGy) 38.9 DLP: (mGycm) 716 Technique: Multiple axial sections of the thorax have been obtained. 3 mm slice thickness, from below the hemidiaphragms to above the apices of the lungs. Mediastinal and lung density settings have been obtained. 2-D sagittal and coronal reconstructions. 3-D angiographic renderings, 3-D volume renderings, 3D post processing, vascular maximum intensity projections obtained. Contrast administered is 100 cc Isovue-370. Low dose protocols were performed. One or more of the following dose reduction techniques were used; automated exposure control, adjustment of the mA and/or KV according to patient size, use of iterative reconstruction technique. Findings: Left innominate vein stent Thoracic aortic calcification no aneurysmal dilatation or dissection No pulmonary artery emboli Mild to moderate enlargement cardiac contour prominent vascular congestion Bilateral pulmonary edema with small to moderate bilateral pleural effusions No visualized liver or splenic lesion Absent gallbladder Renal cortical thinning, no hydronephrosis Severe osteopenia IMPRESSION: No thoracic aortic aneurysm dilatation Negative for pulmonary artery emboli Mild to moderate heart failure with small to moderate bilateral pleural effusions
[2024-12-29 10:45] LABS: Alanine Aminotransferase 23 U/L (10-49); Albumin, Serum 4.2 gm/dL (3.4-4.8); Albumin/Globulin Ratio 1.4 (1.2-2.2); Alkaline Phosphatase 245 U/L (46-116); Amylase 43 U/L (30-118); Anion Gap 12 (7-16); Aspartate Amino Transferase 43 U/L (0-34); BUN/Creatinine Ratio 6 Ratio (12-20); Bilirubin,Direct 0.2 mg/dL (0.0-0.3); Bilirubin,Total 0.4 mg/dL (0.3-1.2); Blood Urea Nitrogen 33 mg/dL (9-23); C-Reactive Protein < 0.5 mg/dL (0.0-0.9); Calcium 8.7 mg/dL (8.3-10.6); Calcium (Corrected) 8.7 mg/dL (8.5-10.1); Carbon Dioxide 28.8 mMol/L (20.0-31.0); Chloride 98 mMol/L (98-107); Creatinine (Component) 5.6 mg/dL (0.6-1.3); Estimated Creatinine Clearance 8.3 mL/min (>60); Globulin 2.9 gm/dL (2.3-3.5); Glucose 205 mg/dL (74-106); Lipase 27 U/L (12-53); Magnesium 2.1 mg/dL (1.6-2.6); Osmolality,Calculated 290 (275-295); Potassium 4.8 mMol/L (3.4-5.1); Procalcitonin 0.09 ng/ml (0.0-0.49); Sodium 139 mMol/L (136-145); Thyroid Stimulating Hormone 13.20 uIU/mL (0.55-4.78); Total Protein 7.1 gm/dL (5.7-8.2); Troponin I 0.035 ng/mL (0.0-0.045); eGFR 7 See Note
[2024-12-29] MEDS: hydrALAZINE INJ 20 MG/ML VIAL IVP (10:45)
[2024-12-29 10:47] LABS: Glucose Estimated Average 151 mg/dL (80-131); Hemoglobin A1C 6.9 % Hgb (4.8-6.0)
[2024-12-29 10:57] LABS: B-Type Natriuretic Peptide 1041 pg/mL (0-100)
[2024-12-29 11:03] LABS: Sed Rate (ESR) 53 mm/hr (0-30)
[2024-12-29 11:16] LABS: Collection Type, Urine Clean Catch
[2024-12-29 11:30] LABS: Influenza A Ag Negative; Influenza B Ag Negative
[2024-12-29 11:39] LABS: Bilirubin,Urine Negative (Negative); Blood,Urine Negative (Negative); Clarity,Urine Clear (Clear/Hazy); Culture Indicated,Urine Not Indicated; Glucose, Urine 2+ (Negative); Hyaline Casts,Urine < 1 /hpf (0-1); Ketones,Urine Negative (Negative); Leukocyte Esterase,Urine Negative (Negative); Nitrite,Urine Negative (Negative); PH,Urine 8.0 (5.0-7.0); Protein,Urine 1+ (Neg - Trace); RBC,Urine 1 /hpf (0-3); Specific Gravity,Urine 1.007 (1.001-1.035); Squamous Epithelial Cell,Urine < 1 /hpf (0-5); Urobilinogen,Urine Negative mg/dL (0.0-1.0); WBC,Urine < 1 /hpf (0-5)
[2024-12-29 11:43] LABS: Color,Urine Lt-Yellow (Lt Yel-Yel)
[2024-12-29 12:11] LABS: Free T3 2.6 pg/mL (2.3-4.2); Free T4 (Free Thyroxine) 1.32 ng/dL (0.89-1.76)
--- NOTE | 2024-12-29 12:55 | XR_ITS ---
Examination: Abdomen sonogram, Limited Date and time of exam: December 29, 2024, 1309 hours INDICATIONS: Onset right upper abdominal pain today Technique: Real-time pleitez scale transabdominal sonographic images of the upper abdomen obtained. Findings: Absent gallbladder Normal common bile duct 0.4 cm Pancreatic head 2.1 cm Liver 11.7 cm fatty infiltration lobular contour Normal hepatopetal portal venous flow Patent IVC IMPRESSION: Normal common bile duct Liver normal size, primary hepatocellular disease
[2024-12-29 13:07] LABS: Reflex Lactate? Y
[2024-12-29 13:44] LABS: Lactic Acid, 3 HR 1.2 mMol/L (0.4-2.0)
[2024-12-29 15:05] LABS: Hepatitis A Antibody IgM Non Reactive (Non React); Hepatitis B Core Antibody IgM Non Reactive (Non React); Hepatitis B Surface Ab Reactive (Immune) (Immune); Hepatitis B Surface Antigen Non Reactive (Non React); Hepatitis C Antibody Non Reactive (Non React)
[2024-12-29] MEDS: HYDROmorphone INJ 2 MG/ML VIAL 1 MG IVP (18:44)
[2024-12-29] MEDS: ONDANSETRON INJ 2 MG/ML INJ 2 ML 4 MG IVP (18:44)
== END 2024-12-29 19:31 | disposition home or self-care (01) ==
PROVIDERS: Emergency Provider Emergency Medicine; PCP Internal Medicine
DX: I16.0 Hypertensive urgency (principal); I45.10 Unspecified right bundle-branch block; N18.6 End stage renal disease
CPT/HCPCS: 36415; 36600; 51701; 70450; 71045; 71275; 74177; 76705; 80053; 80074; 81001; 82010; 82150; 82248; 82803; 83036; 83605; 83690; 83735; 83880; 84145; 84439; 84443; 84481; 84484; 85025; 85379; 85652; 86140; 86706; 87040; 87502; 87635; 90935; 93005; 96374; 96375; 96376; 99284; A4649; J0360; J1171; J1938; J2405; Q9967; A9270; G0257